=== PATIENT | female | born 1955 | race Asian ===

== ENCOUNTER → 2020-10-23 | Outpatient (CLI) | payer MEDICARE | END | disposition home or self-care (01) | LOC: RADMN 09:27 | PROVIDERS: ATTEND Internal Medicine | DX: M43.16 Spondylolisthesis, lumbar region (principal); M47.816 Spondylosis without myelopathy or radiculopathy, lumbar region; M48.061 Spinal stenosis, lumbar region without neurogenic claudication; M47.817 Spondylosis without myelopathy or radiculopathy, lumbosacral region; M48.07 Spinal stenosis, lumbosacral region; M41.86 Other forms of scoliosis, lumbar region | CPT/HCPCS: 72148 ==

== ENCOUNTER 2020-12-16 16:47 | Inpatient (IN) | payer MEDICARE, BC ==
[~2020-12-16] VITALS: Ht 154.9 cm; Wt 47.6 kg
[2020-12-17 11:30] VITALS: BP 125/71
[2020-12-17] MEDS ORDERED: BISACODYL 10 MG RECTAL RECTAL SUPPOSITORY PR SCH (11:45)
[2020-12-17] MEDS ORDERED: ALBUTEROL SULFATE HFA 90 MCG/PUFF 8 GM INHALER IH PRN (11:45)
[2020-12-17] MEDS ORDERED: INFLUENZA VIRUS VACCINE QVS 2021-22 (6MO+)/PF 60 MCG/0.5 ML SYRINGE IM. ONE (14:45)
[2020-12-17] MEDS ORDERED: PNEUMOCOCCAL VACCINE POLYVALENT 0.5 ML VIAL [PPSV23] IM. ONE (14:45)
[2020-12-17 16:22] VITALS: BP 99/60
[2020-12-17] MEDS: OxyCODONE HCL/ACETAMINOPHEN 10-325 MG TABLET PO PRN (16:22)
[2020-12-17 16:51] VITALS: BP 99/60
[2020-12-17] MEDS: ATORVASTATIN CALCIUM 20 MG TABLET PO SCH (21:18)
[2020-12-17] MEDS: CIPROFLOXACIN HCL 500 MG TABLET PO SCH (21:19)
[2020-12-17] MEDS: SENNA 187 MG TABLET PO SCH (21:19)
[2020-12-17] MEDS: DOCUSATE SODIUM 100 MG CAPSULE PO SCH (21:19)
[2020-12-17] MEDS: ETHYL ALCOHOL 62% ANTISEPTIC NASAL INHALANT 0.6 ML AMPUL NASAL SCH (21:20)
[2020-12-18 02:00] VITALS: BP 103/61
[2020-12-18] MEDS: OxyCODONE HCL/ACETAMINOPHEN 10-325 MG TABLET PO PRN ×3 (03:44→20:18)
[2020-12-18] MEDS: BISACODYL 10 MG RECTAL RECTAL SUPPOSITORY PR SCH (05:27)
[2020-12-18 06:31] LABS: BASOPHILS % (AUTO) 0.9 % (0.0-2.0); EOSINOPHILS % (AUTO) 2.3 % (1.0-6.0); HEMATOCRIT 29.9 % (36-46); HEMOGLOBIN 10.2 g/dL (12.0-16.0); LYMPHOCYTES # (AUTO) 1.3 K/uL (1.0-4.8); MEAN CORPUSCULAR HGB CONC 33.9 G/dL (31.0-37.0); MEAN CORPUSCULAR VOLUME 95 fL (80-100); MONOCYTES # (AUTO) 0.6 K/uL (0.1-1.0); MONOCYTES % (AUTO) 6.5 % (2.0-9.0); NEUTROPHILS # (AUTO) 7.1 K/uL (1.8-7.7); NEUTROPHILS % (AUTO) 76.3 % (40.0-70.0); PLATELET COUNT (AUTO) 328 K/uL (150-450); RED BLOOD CELL COUNT(AUTO) 3.17 MIL/uL (4.00-5.20)
[2020-12-18 06:48] LABS: ALANINE AMINOTRANSFERASE 22 U/L (12-78); ALBUMIN 2.4 g/dL (3.4-5.0); ALKALINE PHOSPHATASE 145 U/L (46-116); ANION GAP 5 mmol/L (8-16); ASPARTATE AMINOTRANSFERASE 18 U/L (15-37); BILIRUBIN,TOTAL 0.2 mg/dL (0.1-1.0); CALCIUM, TOTAL 7.7 mg/dL (8.8-10.5); CARBON DIOXIDE 28 mmol/L (22-29); CHLORIDE 102 mmol/L (98-107); CREATININE 0.46 mg/dL (0.60-1.30); GLOMERULAR FILTR. RATE CALC > 60 mL/min (>60); GLUCOSE,RANDOM 109 mg/dL (70-110); POTASSIUM 4.2 mmol/L (3.5-5.1); SODIUM SERUM 135 mmol/L (136-145); UREA NITROGEN, BLOOD 12 mg/dL (7-18)
[2020-12-18 07:30] VITALS: BP 94/52
[2020-12-18] MEDS: LISINOPRIL 10 MG TABLET PO SCH (08:24)
[2020-12-18] MEDS: DOCUSATE SODIUM 100 MG CAPSULE PO SCH ×2 (08:24→20:13)
[2020-12-18] MEDS: ETHYL ALCOHOL 62% ANTISEPTIC NASAL INHALANT 0.6 ML AMPUL NASAL SCH ×2 (08:24→20:12)
[2020-12-18] MEDS: ASCORBIC ACID 500 MG TABLET PO SCH (08:25)
[2020-12-18] MEDS: POLYETHYLENE GLYCOL 3350 17 GM PACKET PO SCH (08:25)
[2020-12-18] MEDS: CIPROFLOXACIN HCL 500 MG TABLET PO SCH ×2 (08:25→20:12)
[2020-12-18] MEDS: ZINC SULFATE 220 MG CAPSULE PO SCH (13:34)
[2020-12-18] MEDS: MULTIVITAMINS WITH MINERALS, THERAPEUTIC TABLET PO SCH (13:34)
[2020-12-18 16:04] VITALS: BP 103/63
[2020-12-18] MEDS: MELATONIN 3 MG TABLET PO PRN (20:13)
[2020-12-18] MEDS: ATORVASTATIN CALCIUM 20 MG TABLET PO SCH (20:13)
[2020-12-18] MEDS: SENNA 187 MG TABLET PO SCH (20:13)
[2020-12-19] MEDS ORDERED: ASPI81TA39 PO (02:53)
[2020-12-19] MEDS ORDERED: ALEN70TA65 PO (02:53)
[2020-12-19] MEDS ORDERED: LISI-893 PO (02:53)
[2020-12-19] MEDS ORDERED: ATOR20TA86 PO (02:53)
[2020-12-19 04:15] VITALS: BP 99/58
[2020-12-19] MEDS: BISACODYL 10 MG RECTAL RECTAL SUPPOSITORY PR SCH (05:47)
[2020-12-19] MEDS: OxyCODONE HCL/ACETAMINOPHEN 5-325 MG TABLET PO PRN (06:05)
[2020-12-19] MEDS: CYCLOBENZAPRINE HCL 10 MG TABLET PO PRN ×2 (07:26→16:38)
[2020-12-19 09:00] VITALS: BP 94/52
[2020-12-19] MEDS: ASCORBIC ACID 500 MG TABLET PO SCH (09:03)
[2020-12-19] MEDS: LISINOPRIL 10 MG TABLET PO SCH (09:03)
[2020-12-19] MEDS: ETHYL ALCOHOL 62% ANTISEPTIC NASAL INHALANT 0.6 ML AMPUL NASAL SCH ×2 (09:03→21:18)
[2020-12-19] MEDS: DOCUSATE SODIUM 100 MG CAPSULE PO SCH ×2 (09:03→21:19)
[2020-12-19] MEDS: CIPROFLOXACIN HCL 500 MG TABLET PO SCH ×2 (09:03→21:18)
[2020-12-19] MEDS: POLYETHYLENE GLYCOL 3350 17 GM PACKET PO SCH (09:03)
[2020-12-19] MEDS ORDERED: ONDANSETRON HCL 4 MG/2 ML VIAL IVP PRN (09:15)
[2020-12-19] MEDS ORDERED: ONDANSETRON HCL 4 MG TABLET PO PRN (10:15)
[2020-12-19 11:20] LABS: APPEARANCE,URINE CLOUDY (CLEAR); BILIRUBIN,URINE NEGATIVE (NEGATIVE); GLUCOSE, URINE (UA) NEGATIVE (NEGATIVE); KETONES,URINE 15 mg/dL (NEGATIVE); LEUKOCYTE ESTERASE ,URINE TRACE (NEGATIVE); NITRATE,URINE NEGATIVE (NEGATIVE); OCCULT BLOOD,URINE LARGE (NEGATIVE); PROTEIN,URINE POS 1+ (NEGATIVE)
[2020-12-19 11:36] LABS: BACTERIA,URINE Moderate /HPF (None Seen); WBC,URINE 0-2 /HPF (0-5)
[2020-12-19 16:05] VITALS: BP 101/61
[2020-12-19] MEDS: ZINC SULFATE 220 MG CAPSULE PO SCH (16:38)
[2020-12-19] MEDS: GABAPENTIN 100 MG CAPSULE PO SCH (16:38)
[2020-12-19] MEDS: MULTIVITAMINS WITH MINERALS, THERAPEUTIC TABLET PO SCH (16:38)
[2020-12-19] MEDS: SUMAtriptan SUCCINATE 25 MG TABLET PO PRN (18:02)
[2020-12-19] MEDS: SENNA 187 MG TABLET PO SCH (21:18)
[2020-12-19] MEDS: FAMOTIDINE 20 MG TABLET PO SCH (21:18)
[2020-12-19] MEDS: ATORVASTATIN CALCIUM 20 MG TABLET PO SCH (21:18)
[2020-12-19] MEDS: LACTOBAC ACID/BULG/BIFID/THERM TABLET PO SCH (21:18)
[2020-12-19] MEDS: MELATONIN 3 MG TABLET PO PRN (21:23)
[2020-12-20] MEDS: GABAPENTIN 100 MG CAPSULE PO SCH ×3 (00:09→15:56)
[2020-12-20 00:20] VITALS: BP 92/54
[2020-12-20] MEDS: BISACODYL 10 MG RECTAL RECTAL SUPPOSITORY PR SCH (05:36)
[2020-12-20] MEDS: CYCLOBENZAPRINE HCL 10 MG TABLET PO PRN (07:15)
[2020-12-20] MEDS: CIPROFLOXACIN HCL 500 MG TABLET PO SCH ×2 (08:41→21:02)
[2020-12-20] MEDS: ETHYL ALCOHOL 62% ANTISEPTIC NASAL INHALANT 0.6 ML AMPUL NASAL SCH ×2 (08:41→21:02)
[2020-12-20] MEDS: ASCORBIC ACID 500 MG TABLET PO SCH (08:42)
[2020-12-20] MEDS: POLYETHYLENE GLYCOL 3350 17 GM PACKET PO SCH (08:42)
[2020-12-20] MEDS: LACTOBAC ACID/BULG/BIFID/THERM TABLET PO SCH ×2 (08:42→21:02)
[2020-12-20] MEDS: FAMOTIDINE 20 MG TABLET PO SCH ×2 (08:42→21:02)
[2020-12-20] MEDS: DOCUSATE SODIUM 100 MG CAPSULE PO SCH ×2 (08:42→21:02)
[2020-12-20 09:34] VITALS: BP 108/71
[2020-12-20] MEDS: SUMAtriptan SUCCINATE 25 MG TABLET PO PRN (09:34)
[2020-12-20] MEDS: MULTIVITAMINS WITH MINERALS, THERAPEUTIC TABLET PO SCH (11:17)
[2020-12-20] MEDS: ZINC SULFATE 220 MG CAPSULE PO SCH (11:17)
[2020-12-20] MEDS: ENOXAPARIN SODIUM 30 MG/0.3 ML PF SYRINGE SQ SCH ×2 (11:17→21:02)
[2020-12-20 16:38] VITALS: BP 95/65
[2020-12-20] MEDS: SENNA 187 MG TABLET PO SCH (21:02)
[2020-12-20] MEDS: ATORVASTATIN CALCIUM 20 MG TABLET PO SCH (21:02)
[2020-12-20] MEDS: MELATONIN 3 MG TABLET PO PRN (21:02)
[2020-12-21] MEDS: GABAPENTIN 100 MG CAPSULE PO SCH ×4 (00:10→23:53)
[2020-12-21 00:30] VITALS: BP 91/58
[2020-12-21] MEDS: OxyCODONE HCL/ACETAMINOPHEN 5-325 MG TABLET PO PRN (01:47)
[2020-12-21] MEDS: BISACODYL 10 MG RECTAL RECTAL SUPPOSITORY PR SCH (06:06)
[2020-12-21] MEDS: CYCLOBENZAPRINE HCL 10 MG TABLET PO PRN (08:21)
[2020-12-21] MEDS: LACTOBAC ACID/BULG/BIFID/THERM TABLET PO SCH ×2 (08:22→20:52)
[2020-12-21] MEDS: CIPROFLOXACIN HCL 500 MG TABLET PO SCH ×2 (08:22→20:52)
[2020-12-21] MEDS: FAMOTIDINE 20 MG TABLET PO SCH ×2 (08:22→20:52)
[2020-12-21] MEDS: ASCORBIC ACID 500 MG TABLET PO SCH (08:22)
[2020-12-21] MEDS: ETHYL ALCOHOL 62% ANTISEPTIC NASAL INHALANT 0.6 ML AMPUL NASAL SCH ×2 (08:22→20:52)
[2020-12-21] MEDS: DOCUSATE SODIUM 100 MG CAPSULE PO SCH ×2 (08:22→20:52)
[2020-12-21] MEDS: ENOXAPARIN SODIUM 30 MG/0.3 ML PF SYRINGE SQ SCH ×2 (08:23→20:53)
[2020-12-21] MEDS: POLYETHYLENE GLYCOL 3350 17 GM PACKET PO SCH (08:23)
[2020-12-21 10:36] VITALS: BP 108/61
[2020-12-21] MEDS: MULTIVITAMINS WITH MINERALS, THERAPEUTIC TABLET PO SCH (12:04)
[2020-12-21] MEDS: ZINC SULFATE 220 MG CAPSULE PO SCH (12:04)
[2020-12-21 15:57] VITALS: BP 108/63
[2020-12-21] MEDS: ATORVASTATIN CALCIUM 20 MG TABLET PO SCH (20:51)
[2020-12-21] MEDS: MELATONIN 3 MG TABLET PO PRN (20:52)
[2020-12-21] MEDS: SENNA 187 MG TABLET PO SCH (20:52)
[2020-12-21 23:57] VITALS: BP 102/63
[2020-12-22] MEDS: OxyCODONE HCL/ACETAMINOPHEN 10-325 MG TABLET PO PRN (02:29)
[2020-12-22] MEDS: BISACODYL 10 MG RECTAL RECTAL SUPPOSITORY PR SCH (06:33)
[2020-12-22] MEDS: FAMOTIDINE 20 MG TABLET PO SCH ×2 (09:22→20:31)
[2020-12-22] MEDS: DOCUSATE SODIUM 100 MG CAPSULE PO SCH ×2 (09:22→20:31)
[2020-12-22] MEDS: CIPROFLOXACIN HCL 500 MG TABLET PO SCH ×2 (09:22→20:31)
[2020-12-22] MEDS: ENOXAPARIN SODIUM 30 MG/0.3 ML PF SYRINGE SQ SCH ×2 (09:22→20:30)
[2020-12-22] MEDS: ETHYL ALCOHOL 62% ANTISEPTIC NASAL INHALANT 0.6 ML AMPUL NASAL SCH ×2 (09:22→20:31)
[2020-12-22] MEDS: ASCORBIC ACID 500 MG TABLET PO SCH (09:22)
[2020-12-22] MEDS: POLYETHYLENE GLYCOL 3350 17 GM PACKET PO SCH (09:22)
[2020-12-22] MEDS: LACTOBAC ACID/BULG/BIFID/THERM TABLET PO SCH ×2 (09:22→20:31)
[2020-12-22] MEDS: GABAPENTIN 100 MG CAPSULE PO SCH ×3 (09:23→23:36)
[2020-12-22 10:01] VITALS: BP 98/64
[2020-12-22] MEDS: ZINC SULFATE 220 MG CAPSULE PO SCH (12:15)
[2020-12-22] MEDS: MULTIVITAMINS WITH MINERALS, THERAPEUTIC TABLET PO SCH (12:15)
[2020-12-22 16:03] VITALS: BP 99/68
[2020-12-22] MEDS: SENNA 187 MG TABLET PO SCH (20:30)
[2020-12-22] MEDS: MELATONIN 3 MG TABLET PO PRN (20:31)
[2020-12-22] MEDS: ATORVASTATIN CALCIUM 20 MG TABLET PO SCH (20:31)
[2020-12-22 23:32] VITALS: BP 101/66
[2020-12-23] MEDS: GABAPENTIN 100 MG CAPSULE PO SCH ×3 (08:06→22:13)
[2020-12-23] MEDS: DOCUSATE SODIUM 100 MG CAPSULE PO SCH ×3 (08:07→22:12)
[2020-12-23] MEDS: ETHYL ALCOHOL 62% ANTISEPTIC NASAL INHALANT 0.6 ML AMPUL NASAL SCH ×2 (08:07→22:12)
[2020-12-23] MEDS: ENOXAPARIN SODIUM 30 MG/0.3 ML PF SYRINGE SQ SCH ×2 (08:07→22:13)
[2020-12-23] MEDS: FAMOTIDINE 20 MG TABLET PO SCH ×2 (08:08→22:13)
[2020-12-23] MEDS: BISACODYL 10 MG RECTAL RECTAL SUPPOSITORY PR SCH (08:08)
[2020-12-23] MEDS: LACTOBAC ACID/BULG/BIFID/THERM TABLET PO SCH ×2 (08:08→22:12)
[2020-12-23] MEDS: POLYETHYLENE GLYCOL 3350 17 GM PACKET PO SCH (08:08)
[2020-12-23] MEDS: CIPROFLOXACIN HCL 500 MG TABLET PO SCH ×2 (08:08→22:12)
[2020-12-23] MEDS: ASCORBIC ACID 500 MG TABLET PO SCH (08:09)
[2020-12-23 08:58] VITALS: BP 98/60
[2020-12-23] MEDS: CYCLOBENZAPRINE HCL 10 MG TABLET PO PRN ×2 (10:50→22:41)
[2020-12-23] MEDS: ZINC SULFATE 220 MG CAPSULE PO SCH (12:54)
[2020-12-23] MEDS: MULTIVITAMINS WITH MINERALS, THERAPEUTIC TABLET PO SCH (12:54)
[2020-12-23 15:57] VITALS: BP 103/63
[2020-12-23] MEDS: SENNA 187 MG TABLET PO SCH ×2 (21:00→22:12)
[2020-12-23] MEDS: ATORVASTATIN CALCIUM 20 MG TABLET PO SCH (22:14)
[2020-12-23] MEDS: MELATONIN 3 MG TABLET PO PRN (22:21)
[2020-12-24] VITALS: BP 96/55
[2020-12-24] MEDS: OxyCODONE HCL/ACETAMINOPHEN 5-325 MG TABLET PO PRN (03:25)
[2020-12-24] MEDS: BISACODYL 10 MG RECTAL RECTAL SUPPOSITORY PR SCH (08:14)
[2020-12-24] MEDS: ETHYL ALCOHOL 62% ANTISEPTIC NASAL INHALANT 0.6 ML AMPUL NASAL SCH ×2 (08:14→21:38)
[2020-12-24] MEDS: CIPROFLOXACIN HCL 500 MG TABLET PO SCH ×2 (08:14→21:38)
[2020-12-24] MEDS: LACTOBAC ACID/BULG/BIFID/THERM TABLET PO SCH ×2 (08:14→21:38)
[2020-12-24] MEDS: GABAPENTIN 100 MG CAPSULE PO SCH ×3 (08:14→21:38)
[2020-12-24] MEDS: DOCUSATE SODIUM 100 MG CAPSULE PO SCH ×2 (08:15→21:38)
[2020-12-24] MEDS: FAMOTIDINE 20 MG TABLET PO SCH ×2 (08:15→21:38)
[2020-12-24] MEDS: POLYETHYLENE GLYCOL 3350 17 GM PACKET PO SCH (08:15)
[2020-12-24] MEDS: ENOXAPARIN SODIUM 30 MG/0.3 ML PF SYRINGE SQ SCH ×2 (08:15→21:38)
[2020-12-24] MEDS: ASCORBIC ACID 500 MG TABLET PO SCH (08:15)
[2020-12-24 08:33] LABS: BASOPHILS % (AUTO) 1.8 % (0.0-2.0); EOSINOPHILS % (AUTO) 3.8 % (1.0-6.0); HEMATOCRIT 31.5 % (36-46); HEMOGLOBIN 10.5 g/dL (12.0-16.0); LYMPHOCYTES # (AUTO) 1.8 K/uL (1.0-4.8); LYMPHOCYTES % (AUTO) 30.8 % (22.0-44.0); MEAN CORPUSCULAR HEMOGLOBIN 31.6 pg (26.0-34.0); MEAN CORPUSCULAR HGB CONC 33.4 G/dL (31.0-37.0); MEAN CORPUSCULAR VOLUME 95 fL (80-100); MONOCYTES # (AUTO) 0.4 K/uL (0.1-1.0); MONOCYTES % (AUTO) 6.7 % (2.0-9.0); NEUTROPHILS # (AUTO) 3.3 K/uL (1.8-7.7); NEUTROPHILS % (AUTO) 56.9 % (40.0-70.0); PLATELET COUNT (AUTO) 388 K/uL (150-450); RED BLOOD CELL COUNT(AUTO) 3.33 MIL/uL (4.00-5.20); RED CELL DISTRIBUTION WIDTH 13.1 % (11.5-14.5)
[2020-12-24 08:43] LABS: ANION GAP 2 mmol/L (8-16); CALCIUM, TOTAL 8.6 mg/dL (8.8-10.5); CARBON DIOXIDE 31 mmol/L (22-29); CHLORIDE 107 mmol/L (98-107); CREATININE 0.49 mg/dL (0.60-1.30); GLOMERULAR FILTR. RATE CALC > 60 mL/min (>60); GLUCOSE,RANDOM 93 mg/dL (70-110); POTASSIUM 4.5 mmol/L (3.5-5.1); SODIUM SERUM 140 mmol/L (136-145); UREA NITROGEN, BLOOD 11 mg/dL (7-18)
[2020-12-24 09:51] VITALS: BP 106/73
[2020-12-24] MEDS: ZINC SULFATE 220 MG CAPSULE PO SCH (12:36)
[2020-12-24] MEDS: MULTIVITAMINS WITH MINERALS, THERAPEUTIC TABLET PO SCH (12:36)
[2020-12-24 16:52] VITALS: BP 101/67
[2020-12-24] MEDS: MELATONIN 3 MG TABLET PO PRN (21:38)
[2020-12-24] MEDS: SENNA 187 MG TABLET PO SCH (21:38)
[2020-12-24] MEDS: ATORVASTATIN CALCIUM 20 MG TABLET PO SCH (21:43)
[2020-12-24 23:11] VITALS: BP 100/64
[2020-12-24] MEDS: CYCLOBENZAPRINE HCL 10 MG TABLET PO PRN (23:11)
[2020-12-25] MEDS: OxyCODONE HCL/ACETAMINOPHEN 5-325 MG TABLET PO PRN ×3 (00:58→23:37)
[2020-12-25 08:00] VITALS: BP 110/69
[2020-12-25] MEDS: DOCUSATE SODIUM 100 MG CAPSULE PO SCH ×2 (08:21→20:20)
[2020-12-25] MEDS: LACTOBAC ACID/BULG/BIFID/THERM TABLET PO SCH ×2 (08:22→20:20)
[2020-12-25] MEDS: POLYETHYLENE GLYCOL 3350 17 GM PACKET PO SCH (08:22)
[2020-12-25] MEDS: GABAPENTIN 100 MG CAPSULE PO SCH ×3 (08:22→20:21)
[2020-12-25] MEDS: ENOXAPARIN SODIUM 30 MG/0.3 ML PF SYRINGE SQ SCH ×2 (08:22→20:20)
[2020-12-25] MEDS: CIPROFLOXACIN HCL 500 MG TABLET PO SCH (08:22)
[2020-12-25] MEDS: CYCLOBENZAPRINE HCL 10 MG TABLET PO PRN (08:22)
[2020-12-25] MEDS: FAMOTIDINE 20 MG TABLET PO SCH ×2 (08:22→20:20)
[2020-12-25] MEDS: ETHYL ALCOHOL 62% ANTISEPTIC NASAL INHALANT 0.6 ML AMPUL NASAL SCH ×2 (08:23→20:21)
[2020-12-25] MEDS: BISACODYL 10 MG RECTAL RECTAL SUPPOSITORY PR SCH (12:02)
[2020-12-25] MEDS: ASCORBIC ACID 500 MG TABLET PO SCH (12:26)
[2020-12-25] MEDS: MULTIVITAMINS WITH MINERALS, THERAPEUTIC TABLET PO SCH (12:26)
[2020-12-25] MEDS: ZINC SULFATE 220 MG CAPSULE PO SCH (12:26)
[2020-12-25 15:55] VITALS: BP 97/68
[2020-12-25] MEDS: ATORVASTATIN CALCIUM 20 MG TABLET PO SCH (20:20)
[2020-12-25] MEDS: MELATONIN 3 MG TABLET PO PRN (20:20)
[2020-12-25] MEDS: SENNA 187 MG TABLET PO SCH (20:20)
[2020-12-25 23:37] VITALS: BP 110/70
[2020-12-26] MEDS: CYCLOBENZAPRINE HCL 10 MG TABLET PO PRN ×2 (06:33→20:19)
[2020-12-26] MEDS: BISACODYL 10 MG RECTAL RECTAL SUPPOSITORY PR SCH (07:25)
[2020-12-26] MEDS: POLYETHYLENE GLYCOL 3350 17 GM PACKET PO SCH (08:20)
[2020-12-26] MEDS: ETHYL ALCOHOL 62% ANTISEPTIC NASAL INHALANT 0.6 ML AMPUL NASAL SCH ×2 (08:20→20:17)
[2020-12-26] MEDS: ENOXAPARIN SODIUM 30 MG/0.3 ML PF SYRINGE SQ SCH ×2 (08:21→20:16)
[2020-12-26] MEDS: DOCUSATE SODIUM 100 MG CAPSULE PO SCH ×2 (08:21→20:17)
[2020-12-26] MEDS: ASCORBIC ACID 500 MG TABLET PO SCH (08:21)
[2020-12-26] MEDS: LACTOBAC ACID/BULG/BIFID/THERM TABLET PO SCH ×2 (08:21→20:16)
[2020-12-26] MEDS: FAMOTIDINE 20 MG TABLET PO SCH ×2 (08:21→20:17)
[2020-12-26] MEDS: GABAPENTIN 100 MG CAPSULE PO SCH ×3 (08:22→20:17)
[2020-12-26 08:57] VITALS: BP 96/69
[2020-12-26] MEDS: ZINC SULFATE 220 MG CAPSULE PO SCH (12:37)
[2020-12-26] MEDS: MULTIVITAMINS WITH MINERALS, THERAPEUTIC TABLET PO SCH (12:37)
[2020-12-26 17:04] VITALS: BP 104/72
[2020-12-26] MEDS: ATORVASTATIN CALCIUM 20 MG TABLET PO SCH (20:17)
[2020-12-26] MEDS: SENNA 187 MG TABLET PO SCH (20:17)
[2020-12-26] MEDS: MELATONIN 3 MG TABLET PO PRN (20:17)
[2020-12-26 23:33] VITALS: BP 109/87
[2020-12-27] MEDS: ACETAMINOPHEN 325 MG TABLET PO PRN (00:49)
[2020-12-27 07:20] VITALS: BP 103/68
[2020-12-27] MEDS: CYCLOBENZAPRINE HCL 10 MG TABLET PO PRN ×2 (08:31→16:47)
[2020-12-27] MEDS: ETHYL ALCOHOL 62% ANTISEPTIC NASAL INHALANT 0.6 ML AMPUL NASAL SCH ×2 (08:33→20:26)
[2020-12-27] MEDS: LACTOBAC ACID/BULG/BIFID/THERM TABLET PO SCH ×2 (08:33→20:25)
[2020-12-27] MEDS: BISACODYL 10 MG RECTAL RECTAL SUPPOSITORY PR SCH (08:33)
[2020-12-27] MEDS: FAMOTIDINE 20 MG TABLET PO SCH ×2 (08:33→20:25)
[2020-12-27] MEDS: ENOXAPARIN SODIUM 30 MG/0.3 ML PF SYRINGE SQ SCH ×2 (08:34→20:25)
[2020-12-27] MEDS: DOCUSATE SODIUM 100 MG CAPSULE PO SCH ×2 (08:34→20:25)
[2020-12-27] MEDS: ASCORBIC ACID 500 MG TABLET PO SCH (08:34)
[2020-12-27] MEDS: GABAPENTIN 100 MG CAPSULE PO SCH (08:34)
[2020-12-27] MEDS: POLYETHYLENE GLYCOL 3350 17 GM PACKET PO SCH (08:34)
[2020-12-27] MEDS: MULTIVITAMINS WITH MINERALS, THERAPEUTIC TABLET PO SCH (11:15)
[2020-12-27] MEDS: ZINC SULFATE 220 MG CAPSULE PO SCH (11:15)
[2020-12-27 16:00] VITALS: BP 92/57
[2020-12-27] MEDS: GABAPENTIN 300 MG CAPSULE PO SCH ×2 (16:48→20:25)
[2020-12-27 20:24] VITALS: BP 113/66
[2020-12-27] MEDS: OxyCODONE HCL/ACETAMINOPHEN 5-325 MG TABLET PO PRN (20:24)
[2020-12-27] MEDS: ATORVASTATIN CALCIUM 20 MG TABLET PO SCH (20:25)
[2020-12-27] MEDS: SENNA 187 MG TABLET PO SCH (20:25)
[2020-12-28 05:33] VITALS: BP 119/78
[2020-12-28] MEDS: OxyCODONE HCL/ACETAMINOPHEN 5-325 MG TABLET PO PRN (05:33)
[2020-12-28] MEDS: GABAPENTIN 300 MG CAPSULE PO SCH ×3 (08:19→20:45)
[2020-12-28] MEDS: DOCUSATE SODIUM 100 MG CAPSULE PO SCH ×2 (08:19→20:45)
[2020-12-28] MEDS: FAMOTIDINE 20 MG TABLET PO SCH ×2 (08:20→20:44)
[2020-12-28] MEDS: LACTOBAC ACID/BULG/BIFID/THERM TABLET PO SCH ×2 (08:20→20:45)
[2020-12-28] MEDS: BISACODYL 10 MG RECTAL RECTAL SUPPOSITORY PR SCH ×2 (08:20→08:22)
[2020-12-28] MEDS: ENOXAPARIN SODIUM 30 MG/0.3 ML PF SYRINGE SQ SCH ×2 (08:20→20:44)
[2020-12-28] MEDS: ASCORBIC ACID 500 MG TABLET PO SCH (08:20)
[2020-12-28] MEDS: POLYETHYLENE GLYCOL 3350 17 GM PACKET PO SCH (08:20)
[2020-12-28] MEDS: ETHYL ALCOHOL 62% ANTISEPTIC NASAL INHALANT 0.6 ML AMPUL NASAL SCH ×2 (08:21→20:44)
[2020-12-28 11:00] VITALS: BP 113/83
[2020-12-28] MEDS: MULTIVITAMINS WITH MINERALS, THERAPEUTIC TABLET PO SCH (12:35)
[2020-12-28] MEDS: ZINC SULFATE 220 MG CAPSULE PO SCH (12:35)
[2020-12-28 15:48] VITALS: BP 105/66
[2020-12-28] MEDS: CYCLOBENZAPRINE HCL 10 MG TABLET PO PRN (17:33)
[2020-12-28] MEDS: ATORVASTATIN CALCIUM 20 MG TABLET PO SCH (20:45)
[2020-12-28] MEDS: SENNA 187 MG TABLET PO SCH (20:45)
[2020-12-29 00:22] VITALS: BP 118/72
[2020-12-29] MEDS: OxyCODONE HCL/ACETAMINOPHEN 5-325 MG TABLET PO PRN ×2 (00:22→23:07)
[2020-12-29] MEDS: ACETAMINOPHEN 325 MG TABLET PO PRN (02:13)
[2020-12-29] MEDS: CYCLOBENZAPRINE HCL 10 MG TABLET PO PRN (06:29)
[2020-12-29] MEDS: ETHYL ALCOHOL 62% ANTISEPTIC NASAL INHALANT 0.6 ML AMPUL NASAL SCH ×2 (08:21→20:35)
[2020-12-29] MEDS: POLYETHYLENE GLYCOL 3350 17 GM PACKET PO SCH (08:21)
[2020-12-29] MEDS: ENOXAPARIN SODIUM 30 MG/0.3 ML PF SYRINGE SQ SCH ×2 (08:21→20:35)
[2020-12-29] MEDS: LACTOBAC ACID/BULG/BIFID/THERM TABLET PO SCH ×2 (08:21→20:36)
[2020-12-29] MEDS: DOCUSATE SODIUM 100 MG CAPSULE PO SCH ×2 (08:21→20:37)
[2020-12-29] MEDS: ASCORBIC ACID 500 MG TABLET PO SCH (08:22)
[2020-12-29] MEDS: GABAPENTIN 300 MG CAPSULE PO SCH (08:22)
[2020-12-29] MEDS: FAMOTIDINE 20 MG TABLET PO SCH ×2 (08:22→20:36)
[2020-12-29] MEDS ORDERED: GABAPENTIN 100 MG CAPSULE PO ONE (09:00)
[2020-12-29] MEDS ORDERED: GABAPENTIN 400 MG CAPSULE PO SCH (09:00)
[2020-12-29 09:25] VITALS: BP 108/66
[2020-12-29] MEDS: TAMSULOSIN HCL 0.4 MG CAPSULE PO SCH ×2 (10:45→20:36)
[2020-12-29] MEDS: MULTIVITAMINS WITH MINERALS, THERAPEUTIC TABLET PO SCH (12:02)
[2020-12-29] MEDS: ZINC SULFATE 220 MG CAPSULE PO SCH (12:02)
[2020-12-29 15:02] VITALS: BP 102/65
[2020-12-29] MEDS: GABAPENTIN 400 MG CAPSULE PO SCH ×2 (15:19→20:36)
[2020-12-29] MEDS: SENNA 187 MG TABLET PO SCH (20:36)
[2020-12-29] MEDS: ATORVASTATIN CALCIUM 20 MG TABLET PO SCH (20:36)
[2020-12-29 23:07] VITALS: BP 112/69
[2020-12-29] MEDS: MELATONIN 3 MG TABLET PO PRN (23:11)
[2020-12-30] MEDS: ACETAMINOPHEN 325 MG TABLET PO PRN (04:34)
[2020-12-30] MEDS: LACTOBAC ACID/BULG/BIFID/THERM TABLET PO SCH ×2 (07:58→21:18)
[2020-12-30] MEDS: ETHYL ALCOHOL 62% ANTISEPTIC NASAL INHALANT 0.6 ML AMPUL NASAL SCH ×2 (07:58→21:18)
[2020-12-30] MEDS: BISACODYL 10 MG RECTAL RECTAL SUPPOSITORY PR SCH (07:58)
[2020-12-30] MEDS: DOCUSATE SODIUM 100 MG CAPSULE PO SCH ×2 (07:59→21:18)
[2020-12-30] MEDS: POLYETHYLENE GLYCOL 3350 17 GM PACKET PO SCH (08:00)
[2020-12-30] MEDS: TAMSULOSIN HCL 0.4 MG CAPSULE PO SCH (08:00)
[2020-12-30] MEDS: ASCORBIC ACID 500 MG TABLET PO SCH (08:01)
[2020-12-30] MEDS: ENOXAPARIN SODIUM 30 MG/0.3 ML PF SYRINGE SQ SCH ×2 (08:01→21:18)
[2020-12-30] MEDS: FAMOTIDINE 20 MG TABLET PO SCH ×2 (08:01→21:18)
[2020-12-30] MEDS: GABAPENTIN 400 MG CAPSULE PO SCH ×3 (08:01→21:18)
[2020-12-30 09:13] VITALS: BP 112/75
[2020-12-30] MEDS: MULTIVITAMINS WITH MINERALS, THERAPEUTIC TABLET PO SCH (13:48)
[2020-12-30] MEDS: ZINC SULFATE 220 MG CAPSULE PO SCH (13:48)
[2020-12-30 16:00] VITALS: BP 103/66
[2020-12-30] MEDS: OxyCODONE HCL/ACETAMINOPHEN 5-325 MG TABLET PO PRN (17:40)
[2020-12-30] MEDS: ATORVASTATIN CALCIUM 20 MG TABLET PO SCH (21:18)
[2020-12-30] MEDS: MELATONIN 3 MG TABLET PO PRN (21:18)
[2020-12-30 23:59] VITALS: BP 98/64
[2020-12-31] MEDS: OxyCODONE HCL/ACETAMINOPHEN 5-325 MG TABLET PO PRN
[2020-12-31] MEDS ORDERED: ZINC220C14 PO (02:28)
[2020-12-31] MEDS ORDERED: FAMO20 PO (02:28)
[2020-12-31] MEDS ORDERED: ASCO500 PO (02:28)
[2020-12-31] MEDS ORDERED: GABA-1216 PO (02:28)
[2020-12-31] MEDS ORDERED: MULT-1133 PO (02:28)
[2020-12-31] MEDS: DOCUSATE SODIUM 100 MG CAPSULE PO SCH ×2 (07:56→20:28)
[2020-12-31] MEDS: ETHYL ALCOHOL 62% ANTISEPTIC NASAL INHALANT 0.6 ML AMPUL NASAL SCH ×2 (07:56→20:29)
[2020-12-31] MEDS: LACTOBAC ACID/BULG/BIFID/THERM TABLET PO SCH ×2 (07:56→20:29)
[2020-12-31] MEDS: FAMOTIDINE 20 MG TABLET PO SCH ×2 (07:57→20:29)
[2020-12-31] MEDS: POLYETHYLENE GLYCOL 3350 17 GM PACKET PO SCH (07:57)
[2020-12-31] MEDS: ASCORBIC ACID 500 MG TABLET PO SCH (07:57)
[2020-12-31] MEDS: ENOXAPARIN SODIUM 30 MG/0.3 ML PF SYRINGE SQ SCH ×2 (07:57→20:28)
[2020-12-31] MEDS: GABAPENTIN 400 MG CAPSULE PO SCH ×3 (07:57→20:28)
[2020-12-31] MEDS: CYCLOBENZAPRINE HCL 10 MG TABLET PO PRN (08:15)
[2020-12-31 09:18] VITALS: BP 121/72
[2020-12-31] MEDS: ZINC SULFATE 220 MG CAPSULE PO SCH (12:29)
[2020-12-31] MEDS: MULTIVITAMINS WITH MINERALS, THERAPEUTIC TABLET PO SCH (12:29)
[2020-12-31] MEDS: ACETAMINOPHEN 325 MG TABLET PO PRN (13:45)
[2020-12-31 17:05] VITALS: BP 109/62
[2020-12-31] MEDS: DULoxetine HCL 20 MG CAPSULE PO SCH (20:29)
[2020-12-31] MEDS: ATORVASTATIN CALCIUM 20 MG TABLET PO SCH (20:29)
[2021-01-01 02:30] VITALS: BP 140/78
[2021-01-01] MEDS: CYCLOBENZAPRINE HCL 10 MG TABLET PO PRN (02:30)
[2021-01-01] MEDS: OxyCODONE HCL/ACETAMINOPHEN 5-325 MG TABLET PO PRN ×2 (05:23→16:16)
[2021-01-01 07:25] VITALS: BP 150/78
[2021-01-01] MEDS: BISACODYL 10 MG RECTAL RECTAL SUPPOSITORY PR SCH (08:24)
[2021-01-01] MEDS: FAMOTIDINE 20 MG TABLET PO SCH ×2 (08:39→21:32)
[2021-01-01] MEDS: DOCUSATE SODIUM 100 MG CAPSULE PO SCH ×2 (08:39→21:32)
[2021-01-01] MEDS: ETHYL ALCOHOL 62% ANTISEPTIC NASAL INHALANT 0.6 ML AMPUL NASAL SCH ×2 (08:39→21:32)
[2021-01-01] MEDS: ASCORBIC ACID 500 MG TABLET PO SCH (08:39)
[2021-01-01] MEDS: POLYETHYLENE GLYCOL 3350 17 GM PACKET PO SCH (08:39)
[2021-01-01] MEDS: LACTOBAC ACID/BULG/BIFID/THERM TABLET PO SCH ×2 (08:39→21:32)
[2021-01-01] MEDS: ENOXAPARIN SODIUM 30 MG/0.3 ML PF SYRINGE SQ SCH ×2 (08:40→21:32)
[2021-01-01] MEDS: GABAPENTIN 400 MG CAPSULE PO SCH ×3 (08:50→21:32)
[2021-01-01 09:30] VITALS: BP 105/60
[2021-01-01] MEDS: MULTIVITAMINS WITH MINERALS, THERAPEUTIC TABLET PO SCH (12:58)
[2021-01-01] MEDS: ZINC SULFATE 220 MG CAPSULE PO SCH (12:58)
[2021-01-01 16:00] VITALS: BP 130/78
[2021-01-01] MEDS: DULoxetine HCL 20 MG CAPSULE PO SCH (21:32)
[2021-01-01] MEDS: ATORVASTATIN CALCIUM 20 MG TABLET PO SCH (21:32)
[2021-01-01] MEDS: MELATONIN 3 MG TABLET PO PRN (21:40)
[2021-01-02 02:30] VITALS: BP 130/80
[2021-01-02 08:20] VITALS: BP 134/83
[2021-01-02] MEDS: POLYETHYLENE GLYCOL 3350 17 GM PACKET PO SCH (08:23)
[2021-01-02] MEDS: ACETAMINOPHEN 325 MG TABLET PO PRN (08:23)
[2021-01-02] MEDS: DOCUSATE SODIUM 100 MG CAPSULE PO SCH ×2 (08:23→21:41)
[2021-01-02] MEDS: ETHYL ALCOHOL 62% ANTISEPTIC NASAL INHALANT 0.6 ML AMPUL NASAL SCH ×2 (08:23→21:41)
[2021-01-02] MEDS: LACTOBAC ACID/BULG/BIFID/THERM TABLET PO SCH ×2 (08:24→21:41)
[2021-01-02] MEDS: FAMOTIDINE 20 MG TABLET PO SCH ×2 (08:24→21:41)
[2021-01-02] MEDS: GABAPENTIN 400 MG CAPSULE PO SCH ×3 (08:24→21:41)
[2021-01-02] MEDS: ASCORBIC ACID 500 MG TABLET PO SCH (08:24)
[2021-01-02] MEDS: ENOXAPARIN SODIUM 30 MG/0.3 ML PF SYRINGE SQ SCH ×2 (08:24→21:41)
[2021-01-02] MEDS: MULTIVITAMINS WITH MINERALS, THERAPEUTIC TABLET PO SCH (12:29)
[2021-01-02] MEDS: ZINC SULFATE 220 MG CAPSULE PO SCH (12:29)
[2021-01-02 16:00] VITALS: BP 133/83
[2021-01-02] MEDS: MELATONIN 3 MG TABLET PO PRN (21:41)
[2021-01-02] MEDS: ATORVASTATIN CALCIUM 20 MG TABLET PO SCH (21:41)
[2021-01-02] MEDS: DULoxetine HCL 20 MG CAPSULE PO SCH (21:41)
[2021-01-02 23:39] VITALS: BP 122/80
[2021-01-02] MEDS: OxyCODONE HCL/ACETAMINOPHEN 5-325 MG TABLET PO PRN (23:39)
[2021-01-03] MEDS: BISACODYL 10 MG RECTAL RECTAL SUPPOSITORY PR SCH (07:16)
[2021-01-03 08:40] VITALS: BP 130/79
[2021-01-03] MEDS: ACETAMINOPHEN 325 MG TABLET PO PRN ×2 (08:40→14:07)
[2021-01-03] MEDS: ASCORBIC ACID 500 MG TABLET PO SCH (08:40)
[2021-01-03] MEDS: ETHYL ALCOHOL 62% ANTISEPTIC NASAL INHALANT 0.6 ML AMPUL NASAL SCH ×2 (08:40→20:16)
[2021-01-03] MEDS: LACTOBAC ACID/BULG/BIFID/THERM TABLET PO SCH ×2 (08:41→20:16)
[2021-01-03] MEDS: GABAPENTIN 300 MG CAPSULE PO SCH ×3 (08:41→20:17)
[2021-01-03] MEDS: FAMOTIDINE 20 MG TABLET PO SCH ×2 (08:41→20:17)
[2021-01-03] MEDS: ENOXAPARIN SODIUM 30 MG/0.3 ML PF SYRINGE SQ SCH ×2 (08:41→20:15)
[2021-01-03] MEDS: DOCUSATE SODIUM 100 MG CAPSULE PO SCH ×2 (08:42→20:17)
[2021-01-03] MEDS: POLYETHYLENE GLYCOL 3350 17 GM PACKET PO SCH (08:42)
[2021-01-03] MEDS: ZINC SULFATE 220 MG CAPSULE PO SCH (12:26)
[2021-01-03] MEDS: MULTIVITAMINS WITH MINERALS, THERAPEUTIC TABLET PO SCH (12:26)
[2021-01-03 16:30] VITALS: BP 111/67
[2021-01-03] MEDS: BACLOFEN 10 MG TABLET PO SCH ×2 (16:44→20:21)
[2021-01-03] MEDS: DULoxetine HCL 20 MG CAPSULE PO SCH (20:16)
[2021-01-03] MEDS: ATORVASTATIN CALCIUM 20 MG TABLET PO SCH (20:17)
[2021-01-03 23:51] VITALS: BP 148/77
[2021-01-03] MEDS: OxyCODONE HCL/ACETAMINOPHEN 5-325 MG TABLET PO PRN (23:51)
[2021-01-04] MEDS: POLYETHYLENE GLYCOL 3350 17 GM PACKET PO SCH (09:00)
[2021-01-04] MEDS: DOCUSATE SODIUM 100 MG CAPSULE PO SCH ×2 (09:00→20:16)
[2021-01-04 09:15] VITALS: BP 127/85
[2021-01-04] MEDS: ETHYL ALCOHOL 62% ANTISEPTIC NASAL INHALANT 0.6 ML AMPUL NASAL SCH ×2 (09:23→20:13)
[2021-01-04] MEDS: ENOXAPARIN SODIUM 30 MG/0.3 ML PF SYRINGE SQ SCH ×2 (09:24→20:14)
[2021-01-04] MEDS: GABAPENTIN 300 MG CAPSULE PO SCH ×3 (09:25→20:14)
[2021-01-04] MEDS: ASCORBIC ACID 500 MG TABLET PO SCH (09:26)
[2021-01-04] MEDS: BACLOFEN 10 MG TABLET PO SCH ×3 (09:26→20:14)
[2021-01-04] MEDS: LACTOBAC ACID/BULG/BIFID/THERM TABLET PO SCH ×2 (09:26→20:16)
[2021-01-04] MEDS: FAMOTIDINE 20 MG TABLET PO SCH ×2 (09:26→20:14)
[2021-01-04] MEDS: ACETAMINOPHEN 325 MG TABLET PO PRN (10:32)
[2021-01-04] MEDS: ZINC SULFATE 220 MG CAPSULE PO SCH (12:48)
[2021-01-04] MEDS: MULTIVITAMINS WITH MINERALS, THERAPEUTIC TABLET PO SCH (12:48)
[2021-01-04 16:02] VITALS: BP 114/64
[2021-01-04] MEDS: MELATONIN 3 MG TABLET PO PRN (20:14)
[2021-01-04] MEDS: ATORVASTATIN CALCIUM 20 MG TABLET PO SCH (20:14)
[2021-01-04] MEDS: DULoxetine HCL 20 MG CAPSULE PO SCH (20:16)
[2021-01-05 05:46] VITALS: BP 131/78
[2021-01-05] MEDS: BISACODYL 10 MG RECTAL RECTAL SUPPOSITORY PR SCH (07:32)
[2021-01-05] MEDS: POLYETHYLENE GLYCOL 3350 17 GM PACKET PO SCH (09:00)
[2021-01-05 09:10] VITALS: BP 143/96
[2021-01-05] MEDS: GABAPENTIN 300 MG CAPSULE PO SCH ×3 (09:12→20:40)
[2021-01-05] MEDS: LACTOBAC ACID/BULG/BIFID/THERM TABLET PO SCH ×2 (09:12→20:39)
[2021-01-05] MEDS: FAMOTIDINE 20 MG TABLET PO SCH ×2 (09:12→20:40)
[2021-01-05] MEDS: ETHYL ALCOHOL 62% ANTISEPTIC NASAL INHALANT 0.6 ML AMPUL NASAL SCH ×2 (09:12→20:39)
[2021-01-05] MEDS: ASCORBIC ACID 500 MG TABLET PO SCH (09:12)
[2021-01-05] MEDS: DOCUSATE SODIUM 100 MG CAPSULE PO SCH ×2 (09:12→20:40)
[2021-01-05] MEDS: ACETAMINOPHEN 325 MG TABLET PO PRN (09:12)
[2021-01-05] MEDS: BACLOFEN 10 MG TABLET PO SCH ×3 (09:12→20:43)
[2021-01-05] MEDS: ENOXAPARIN SODIUM 30 MG/0.3 ML PF SYRINGE SQ SCH ×2 (09:14→20:39)
[2021-01-05] MEDS: MULTIVITAMINS WITH MINERALS, THERAPEUTIC TABLET PO SCH (12:43)
[2021-01-05] MEDS: ZINC SULFATE 220 MG CAPSULE PO SCH (12:44)
[2021-01-05 16:02] VITALS: BP 138/77
[2021-01-05] MEDS: ATORVASTATIN CALCIUM 20 MG TABLET PO SCH (20:40)
[2021-01-05] MEDS: MELATONIN 3 MG TABLET PO PRN (20:40)
[2021-01-05] MEDS: DULoxetine HCL 20 MG CAPSULE PO SCH (20:43)
[2021-01-06 05:47] VITALS: BP 147/79
[2021-01-06] MEDS: ETHYL ALCOHOL 62% ANTISEPTIC NASAL INHALANT 0.6 ML AMPUL NASAL SCH ×2 (08:10→21:00)
[2021-01-06] MEDS: POLYETHYLENE GLYCOL 3350 17 GM PACKET PO SCH (08:10)
[2021-01-06] MEDS: GABAPENTIN 300 MG CAPSULE PO SCH ×3 (08:11→21:00)
[2021-01-06] MEDS: DOCUSATE SODIUM 100 MG CAPSULE PO SCH ×2 (08:11→21:00)
[2021-01-06] MEDS: ENOXAPARIN SODIUM 30 MG/0.3 ML PF SYRINGE SQ SCH ×2 (08:11→21:00)
[2021-01-06] MEDS: ASCORBIC ACID 500 MG TABLET PO SCH (08:11)
[2021-01-06] MEDS: LACTOBAC ACID/BULG/BIFID/THERM TABLET PO SCH ×2 (08:11→21:00)
[2021-01-06] MEDS: BACLOFEN 10 MG TABLET PO SCH ×3 (08:12→21:00)
[2021-01-06] MEDS: FAMOTIDINE 20 MG TABLET PO SCH ×2 (08:12→21:00)
[2021-01-06 08:15] VITALS: BP 153/88
[2021-01-06] MEDS: ACETAMINOPHEN 325 MG TABLET PO PRN ×2 (08:20→17:10)
[2021-01-06] MEDS: ZINC SULFATE 220 MG CAPSULE PO SCH (12:28)
[2021-01-06] MEDS: MULTIVITAMINS WITH MINERALS, THERAPEUTIC TABLET PO SCH (12:28)
[2021-01-06] MEDS ORDERED: GABA-1201 PO (14:59)
[2021-01-06 16:10] VITALS: BP 128/78
[2021-01-06] MEDS: MELATONIN 3 MG TABLET PO PRN (21:00)
[2021-01-06] MEDS: ATORVASTATIN CALCIUM 20 MG TABLET PO SCH (21:00)
[2021-01-06] MEDS: DULoxetine HCL 20 MG CAPSULE PO SCH (21:02)
[2021-01-07] MEDS: ACETAMINOPHEN 325 MG TABLET PO PRN ×3 (03:42→22:48)
[2021-01-07 03:51] VITALS: BP 141/81
[2021-01-07 08:36] LABS: BASOPHILS % (AUTO) 1.5 % (0.0-2.0); EOSINOPHILS % (AUTO) 1.8 % (1.0-6.0); HEMATOCRIT 38.9 % (36-46); HEMOGLOBIN 12.7 g/dL (12.0-16.0); LYMPHOCYTES # (AUTO) 2.1 K/uL (1.0-4.8); LYMPHOCYTES % (AUTO) 29.5 % (22.0-44.0); MEAN CORPUSCULAR HEMOGLOBIN 31.3 pg (26.0-34.0); MEAN CORPUSCULAR HGB CONC 32.6 G/dL (31.0-37.0); MEAN CORPUSCULAR VOLUME 96 fL (80-100); MONOCYTES # (AUTO) 0.5 K/uL (0.1-1.0); MONOCYTES % (AUTO) 7.7 % (2.0-9.0); NEUTROPHILS # (AUTO) 4.2 K/uL (1.8-7.7); NEUTROPHILS % (AUTO) 59.5 % (40.0-70.0); PLATELET COUNT (AUTO) 361 K/uL (150-450); RED BLOOD CELL COUNT(AUTO) 4.06 MIL/uL (4.00-5.20); RED CELL DISTRIBUTION WIDTH 13.7 % (11.5-14.5)
[2021-01-07 08:39] LABS: ANION GAP 10 mmol/L (8-16); CARBON DIOXIDE 28 mmol/L (22-29); CHLORIDE 106 mmol/L (98-107); CREATININE 0.43 mg/dL (0.60-1.30); GLOMERULAR FILTR. RATE CALC > 60 mL/min (>60); GLUCOSE,RANDOM 120 mg/dL (70-110); POTASSIUM 4.2 mmol/L (3.5-5.1); SODIUM SERUM 144 mmol/L (136-145); UREA NITROGEN, BLOOD 14 mg/dL (7-18)
[2021-01-07] MEDS: GABAPENTIN 300 MG CAPSULE PO SCH ×3 (08:49→22:03)
[2021-01-07] MEDS: LACTOBAC ACID/BULG/BIFID/THERM TABLET PO SCH ×2 (08:50→20:43)
[2021-01-07] MEDS: DOCUSATE SODIUM 100 MG CAPSULE PO SCH ×2 (08:50→20:43)
[2021-01-07] MEDS: ASCORBIC ACID 500 MG TABLET PO SCH (08:50)
[2021-01-07] MEDS: FAMOTIDINE 20 MG TABLET PO SCH ×2 (08:50→22:03)
[2021-01-07] MEDS: BISACODYL 10 MG RECTAL RECTAL SUPPOSITORY PR SCH (08:51)
[2021-01-07] MEDS: BACLOFEN 10 MG TABLET PO SCH ×3 (08:51→20:43)
[2021-01-07] MEDS: POLYETHYLENE GLYCOL 3350 17 GM PACKET PO SCH (08:51)
[2021-01-07] MEDS: ENOXAPARIN SODIUM 30 MG/0.3 ML PF SYRINGE SQ SCH ×2 (08:52→22:03)
[2021-01-07] MEDS: ETHYL ALCOHOL 62% ANTISEPTIC NASAL INHALANT 0.6 ML AMPUL NASAL SCH ×2 (08:55→20:43)
[2021-01-07 10:00] VITALS: BP 142/85
[2021-01-07] MEDS: MULTIVITAMINS WITH MINERALS, THERAPEUTIC TABLET PO SCH (12:47)
[2021-01-07] MEDS: ZINC SULFATE 220 MG CAPSULE PO SCH (12:47)
[2021-01-07 16:00] VITALS: BP 125/78
[2021-01-07] MEDS: DULoxetine HCL 20 MG CAPSULE PO SCH (20:43)
[2021-01-07] MEDS: ATORVASTATIN CALCIUM 20 MG TABLET PO SCH (20:43)
[2021-01-07] MEDS: MELATONIN 3 MG TABLET PO PRN (20:43)
[2021-01-07 23:48] VITALS: BP 135/79
[2021-01-08] MEDS: POLYETHYLENE GLYCOL 3350 17 GM PACKET PO SCH (08:11)
[2021-01-08] MEDS: ETHYL ALCOHOL 62% ANTISEPTIC NASAL INHALANT 0.6 ML AMPUL NASAL SCH ×2 (08:11→20:27)
[2021-01-08] MEDS: DOCUSATE SODIUM 100 MG CAPSULE PO SCH ×2 (08:12→20:28)
[2021-01-08] MEDS: LACTOBAC ACID/BULG/BIFID/THERM TABLET PO SCH ×2 (08:12→20:28)
[2021-01-08] MEDS: FAMOTIDINE 20 MG TABLET PO SCH ×2 (08:13→20:28)
[2021-01-08] MEDS: GABAPENTIN 300 MG CAPSULE PO SCH ×3 (08:13→20:28)
[2021-01-08] MEDS: ASCORBIC ACID 500 MG TABLET PO SCH (08:14)
[2021-01-08] MEDS: BACLOFEN 10 MG TABLET PO SCH ×3 (08:14→20:28)
[2021-01-08] MEDS: ENOXAPARIN SODIUM 30 MG/0.3 ML PF SYRINGE SQ SCH ×2 (08:14→20:30)
[2021-01-08 09:50] VITALS: BP 134/83
[2021-01-08] MEDS: ACETAMINOPHEN 325 MG TABLET PO PRN (09:54)
[2021-01-08] MEDS: CYCLOBENZAPRINE HCL 10 MG TABLET PO PRN (11:19)
[2021-01-08] MEDS: MULTIVITAMINS WITH MINERALS, THERAPEUTIC TABLET PO SCH (13:02)
[2021-01-08 16:33] VITALS: BP 132/66
[2021-01-08] MEDS: ATORVASTATIN CALCIUM 20 MG TABLET PO SCH (20:28)
[2021-01-08] MEDS: DULoxetine HCL 30 MG CAPSULE PO SCH (20:29)
[2021-01-08] MEDS: MELATONIN 3 MG TABLET PO PRN (20:29)
[2021-01-09 03:00] VITALS: BP 132/72
[2021-01-09] MEDS: BISACODYL 10 MG RECTAL RECTAL SUPPOSITORY PR SCH (08:24)
[2021-01-09] MEDS: LACTOBAC ACID/BULG/BIFID/THERM TABLET PO SCH ×2 (08:24→19:59)
[2021-01-09] MEDS: ETHYL ALCOHOL 62% ANTISEPTIC NASAL INHALANT 0.6 ML AMPUL NASAL SCH ×2 (08:24→19:58)
[2021-01-09] MEDS: DOCUSATE SODIUM 100 MG CAPSULE PO SCH ×2 (08:25→20:00)
[2021-01-09] MEDS: BACLOFEN 10 MG TABLET PO SCH ×3 (08:26→19:59)
[2021-01-09] MEDS: POLYETHYLENE GLYCOL 3350 17 GM PACKET PO SCH (08:26)
[2021-01-09] MEDS: GABAPENTIN 300 MG CAPSULE PO SCH ×3 (08:27→20:00)
[2021-01-09] MEDS: FAMOTIDINE 20 MG TABLET PO SCH ×2 (08:27→19:59)
[2021-01-09] MEDS: ASCORBIC ACID 500 MG TABLET PO SCH (08:27)
[2021-01-09] MEDS: ENOXAPARIN SODIUM 30 MG/0.3 ML PF SYRINGE SQ SCH ×2 (08:28→19:59)
[2021-01-09] MEDS: ACETAMINOPHEN 325 MG TABLET PO PRN (10:01)
[2021-01-09 10:05] VITALS: BP 135/91
[2021-01-09] MEDS: MULTIVITAMINS WITH MINERALS, THERAPEUTIC TABLET PO SCH (12:58)
[2021-01-09 16:30] VITALS: BP 130/74
[2021-01-09] MEDS: ATORVASTATIN CALCIUM 20 MG TABLET PO SCH (19:59)
[2021-01-09] MEDS: DULoxetine HCL 30 MG CAPSULE PO SCH (20:00)
[2021-01-09] MEDS: MELATONIN 3 MG TABLET PO PRN (20:00)
[2021-01-10 05:30] VITALS: BP 150/77
[2021-01-10 08:15] VITALS: BP 137/78
[2021-01-10] MEDS: ENOXAPARIN SODIUM 30 MG/0.3 ML PF SYRINGE SQ SCH ×2 (08:15→20:31)
[2021-01-10] MEDS: ACETAMINOPHEN 325 MG TABLET PO PRN (08:16)
[2021-01-10] MEDS: POLYETHYLENE GLYCOL 3350 17 GM PACKET PO SCH (08:16)
[2021-01-10] MEDS: GABAPENTIN 300 MG CAPSULE PO SCH ×3 (08:17→20:38)
[2021-01-10] MEDS: DOCUSATE SODIUM 100 MG CAPSULE PO SCH ×2 (08:17→20:30)
[2021-01-10] MEDS: LACTOBAC ACID/BULG/BIFID/THERM TABLET PO SCH ×2 (08:17→20:31)
[2021-01-10] MEDS: BACLOFEN 10 MG TABLET PO SCH ×3 (08:18→20:31)
[2021-01-10] MEDS: FAMOTIDINE 20 MG TABLET PO SCH ×2 (08:18→20:31)
[2021-01-10] MEDS: ETHYL ALCOHOL 62% ANTISEPTIC NASAL INHALANT 0.6 ML AMPUL NASAL SCH ×2 (08:18→20:30)
[2021-01-10] MEDS: ASCORBIC ACID 500 MG TABLET PO SCH (08:18)
[2021-01-10] MEDS: MULTIVITAMINS WITH MINERALS, THERAPEUTIC TABLET PO SCH (12:51)
[2021-01-10 14:15] LABS: APPEARANCE,URINE CLEAR (CLEAR); BILIRUBIN,URINE NEGATIVE (NEGATIVE); GLUCOSE, URINE (UA) NEGATIVE (NEGATIVE); KETONES,URINE TRACE mg/dL (NEGATIVE); LEUKOCYTE ESTERASE ,URINE NEGATIVE (NEGATIVE); NITRATE,URINE NEGATIVE (NEGATIVE); OCCULT BLOOD,URINE TRACE (NEGATIVE); PROTEIN,URINE NEGATIVE (NEGATIVE); UROBILINOGEN,URINE 0.2 mg/dL (<=1.0)
[2021-01-10 14:28] LABS: BACTERIA,URINE None Seen /HPF (None Seen); SQUAMOUS EPITHELIAL CELL,UR Few /LPF (None Seen); WBC,URINE 0-2 /HPF (0-5)
[2021-01-10 15:35] VITALS: BP 114/84
[2021-01-10] MEDS: MELATONIN 3 MG TABLET PO PRN (20:31)
[2021-01-10] MEDS: DULoxetine HCL 30 MG CAPSULE PO SCH (20:31)
[2021-01-10] MEDS: ATORVASTATIN CALCIUM 20 MG TABLET PO SCH (20:31)
[2021-01-11 02:00] VITALS: BP 136/73
[2021-01-11] MEDS: ACETAMINOPHEN 325 MG TABLET PO PRN ×2 (07:30→11:59)
[2021-01-11 08:00] VITALS: BP 150/84
[2021-01-11] MEDS: ASCORBIC ACID 500 MG TABLET PO SCH (08:32)
[2021-01-11] MEDS: POLYETHYLENE GLYCOL 3350 17 GM PACKET PO SCH (08:32)
[2021-01-11] MEDS: DOCUSATE SODIUM 100 MG CAPSULE PO SCH ×2 (08:32→20:03)
[2021-01-11] MEDS: ENOXAPARIN SODIUM 30 MG/0.3 ML PF SYRINGE SQ SCH ×2 (08:32→20:03)
[2021-01-11] MEDS: ETHYL ALCOHOL 62% ANTISEPTIC NASAL INHALANT 0.6 ML AMPUL NASAL SCH ×2 (08:33→20:02)
[2021-01-11] MEDS: GABAPENTIN 300 MG CAPSULE PO SCH ×3 (08:33→20:03)
[2021-01-11] MEDS: LACTOBAC ACID/BULG/BIFID/THERM TABLET PO SCH ×2 (08:33→20:03)
[2021-01-11] MEDS: FAMOTIDINE 20 MG TABLET PO SCH ×2 (08:33→20:03)
[2021-01-11] MEDS: BACLOFEN 10 MG TABLET PO SCH ×3 (08:34→20:03)
[2021-01-11] MEDS: BISACODYL 10 MG RECTAL RECTAL SUPPOSITORY PR SCH (09:58)
[2021-01-11] MEDS: MULTIVITAMINS WITH MINERALS, THERAPEUTIC TABLET PO SCH (13:03)
[2021-01-11 15:45] VITALS: BP 137/82
[2021-01-11] MEDS: DULoxetine HCL 30 MG CAPSULE PO SCH (20:04)
[2021-01-11] MEDS: ATORVASTATIN CALCIUM 20 MG TABLET PO SCH (20:04)
[2021-01-11] MEDS: MELATONIN 3 MG TABLET PO PRN (22:02)
[2021-01-12 05:46] VITALS: BP 135/83
[2021-01-12] MEDS: GABAPENTIN 300 MG CAPSULE PO SCH ×3 (07:56→20:32)
[2021-01-12] MEDS: DOCUSATE SODIUM 100 MG CAPSULE PO SCH ×2 (07:56→20:31)
[2021-01-12] MEDS: ENOXAPARIN SODIUM 30 MG/0.3 ML PF SYRINGE SQ SCH ×2 (07:56→20:30)
[2021-01-12] MEDS: BACLOFEN 10 MG TABLET PO SCH ×3 (07:57→20:32)
[2021-01-12] MEDS: ASCORBIC ACID 500 MG TABLET PO SCH (07:57)
[2021-01-12] MEDS: FAMOTIDINE 20 MG TABLET PO SCH ×2 (07:57→20:31)
[2021-01-12] MEDS: POLYETHYLENE GLYCOL 3350 17 GM PACKET PO SCH (07:57)
[2021-01-12] MEDS: LACTOBAC ACID/BULG/BIFID/THERM TABLET PO SCH ×2 (07:57→20:31)
[2021-01-12] MEDS: ETHYL ALCOHOL 62% ANTISEPTIC NASAL INHALANT 0.6 ML AMPUL NASAL SCH ×2 (07:58→20:33)
[2021-01-12] MEDS: ACETAMINOPHEN 325 MG TABLET PO PRN (08:22)
[2021-01-12 09:00] VITALS: BP 136/92
[2021-01-12] MEDS: MULTIVITAMINS WITH MINERALS, THERAPEUTIC TABLET PO SCH (13:08)
[2021-01-12 15:50] VITALS: BP 132/74
[2021-01-12] MEDS: OXYBUTYNIN CHLORIDE 5 MG TABLET PO SCH ×2 (16:07→20:32)
[2021-01-12] MEDS: DULoxetine HCL 30 MG CAPSULE PO SCH (20:31)
[2021-01-12] MEDS: ATORVASTATIN CALCIUM 20 MG TABLET PO SCH (20:32)
[2021-01-12] MEDS: MELATONIN 3 MG TABLET PO PRN (22:35)
[2021-01-13 05:30] VITALS: BP 125/77
[2021-01-13 07:29] VITALS: BP 124/78
[2021-01-13] MEDS: DOCUSATE SODIUM 100 MG CAPSULE PO SCH ×2 (08:39→20:32)
[2021-01-13] MEDS: FAMOTIDINE 20 MG TABLET PO SCH ×2 (08:39→20:31)
[2021-01-13] MEDS: ASCORBIC ACID 500 MG TABLET PO SCH (08:39)
[2021-01-13] MEDS: OXYBUTYNIN CHLORIDE 5 MG TABLET PO SCH ×3 (08:39→20:31)
[2021-01-13] MEDS: ETHYL ALCOHOL 62% ANTISEPTIC NASAL INHALANT 0.6 ML AMPUL NASAL SCH ×2 (08:39→20:32)
[2021-01-13] MEDS: LACTOBAC ACID/BULG/BIFID/THERM TABLET PO SCH ×2 (08:39→20:31)
[2021-01-13] MEDS: GABAPENTIN 300 MG CAPSULE PO SCH ×3 (08:40→20:32)
[2021-01-13] MEDS: POLYETHYLENE GLYCOL 3350 17 GM PACKET PO SCH (08:40)
[2021-01-13] MEDS: BACLOFEN 10 MG TABLET PO SCH ×3 (08:40→20:31)
[2021-01-13] MEDS: ENOXAPARIN SODIUM 30 MG/0.3 ML PF SYRINGE SQ SCH ×2 (08:40→20:31)
[2021-01-13] MEDS: BISACODYL 10 MG RECTAL RECTAL SUPPOSITORY PR SCH (09:02)
[2021-01-13] MEDS: MULTIVITAMINS WITH MINERALS, THERAPEUTIC TABLET PO SCH (13:15)
[2021-01-13 16:15] VITALS: BP 126/81
[2021-01-13] MEDS: DULoxetine HCL 30 MG CAPSULE PO SCH (20:32)
[2021-01-13] MEDS: ATORVASTATIN CALCIUM 20 MG TABLET PO SCH (20:32)
[2021-01-13] MEDS: ACETAMINOPHEN 325 MG TABLET PO PRN (20:41)
[2021-01-13] MEDS: MELATONIN 3 MG TABLET PO PRN (20:41)
[2021-01-14 02:46] VITALS: BP 105/57
[2021-01-14] MEDS: ENOXAPARIN SODIUM 30 MG/0.3 ML PF SYRINGE SQ SCH ×2 (08:43→19:59)
[2021-01-14] MEDS: BACLOFEN 10 MG TABLET PO SCH ×3 (08:44→20:00)
[2021-01-14] MEDS: POLYETHYLENE GLYCOL 3350 17 GM PACKET PO SCH (08:44)
[2021-01-14] MEDS: DOCUSATE SODIUM 100 MG CAPSULE PO SCH ×2 (08:45→20:01)
[2021-01-14] MEDS: LACTOBAC ACID/BULG/BIFID/THERM TABLET PO SCH ×2 (08:45→20:00)
[2021-01-14] MEDS: GABAPENTIN 300 MG CAPSULE PO SCH ×3 (08:45→20:00)
[2021-01-14] MEDS: FAMOTIDINE 20 MG TABLET PO SCH ×2 (08:45→20:00)
[2021-01-14] MEDS: ETHYL ALCOHOL 62% ANTISEPTIC NASAL INHALANT 0.6 ML AMPUL NASAL SCH ×2 (08:46→19:59)
[2021-01-14] MEDS: OXYBUTYNIN CHLORIDE 5 MG TABLET PO SCH ×3 (08:46→20:01)
[2021-01-14] MEDS: ASCORBIC ACID 500 MG TABLET PO SCH (08:46)
[2021-01-14 09:50] VITALS: BP 130/87
[2021-01-14] MEDS: ACETAMINOPHEN 325 MG TABLET PO PRN (09:53)
[2021-01-14] MEDS: MULTIVITAMINS WITH MINERALS, THERAPEUTIC TABLET PO SCH (13:12)
[2021-01-14 16:02] VITALS: BP 124/80
[2021-01-14] MEDS: DULoxetine HCL 30 MG CAPSULE PO SCH (20:00)
[2021-01-14] MEDS: MELATONIN 3 MG TABLET PO PRN (20:01)
[2021-01-14] MEDS: ATORVASTATIN CALCIUM 20 MG TABLET PO SCH (20:01)
[2021-01-15 06:00] VITALS: BP 137/79
[2021-01-15] MEDS: BISACODYL 10 MG RECTAL RECTAL SUPPOSITORY PR SCH (08:52)
[2021-01-15] MEDS: ENOXAPARIN SODIUM 30 MG/0.3 ML PF SYRINGE SQ SCH ×2 (08:53→20:22)
[2021-01-15] MEDS: POLYETHYLENE GLYCOL 3350 17 GM PACKET PO SCH (08:54)
[2021-01-15] MEDS: GABAPENTIN 300 MG CAPSULE PO SCH ×3 (08:55→20:22)
[2021-01-15] MEDS: LACTOBAC ACID/BULG/BIFID/THERM TABLET PO SCH ×2 (08:55→20:22)
[2021-01-15] MEDS: DOCUSATE SODIUM 100 MG CAPSULE PO SCH ×2 (08:55→20:22)
[2021-01-15] MEDS: OXYBUTYNIN CHLORIDE 5 MG TABLET PO SCH ×3 (08:55→20:24)
[2021-01-15] MEDS: ASCORBIC ACID 500 MG TABLET PO SCH (08:55)
[2021-01-15] MEDS: BACLOFEN 10 MG TABLET PO SCH ×3 (08:55→20:23)
[2021-01-15] MEDS: FAMOTIDINE 20 MG TABLET PO SCH ×2 (08:55→20:22)
[2021-01-15] MEDS: ETHYL ALCOHOL 62% ANTISEPTIC NASAL INHALANT 0.6 ML AMPUL NASAL SCH ×2 (08:55→20:23)
[2021-01-15 09:08] VITALS: BP 137/75
[2021-01-15] MEDS: ACETAMINOPHEN 325 MG TABLET PO PRN (09:08)
[2021-01-15] MEDS: MULTIVITAMINS WITH MINERALS, THERAPEUTIC TABLET PO SCH (11:37)
[2021-01-15 15:00] VITALS: BP 115/74
[2021-01-15] MEDS: ATORVASTATIN CALCIUM 20 MG TABLET PO SCH (20:22)
[2021-01-15] MEDS: DULoxetine HCL 30 MG CAPSULE PO SCH (20:24)
[2021-01-15 23:10] VITALS: BP 118/72
[2021-01-16] MEDS: ACETAMINOPHEN 325 MG TABLET PO PRN (05:37)
[2021-01-16] MEDS: DOCUSATE SODIUM 100 MG CAPSULE PO SCH ×2 (08:18→20:21)
[2021-01-16] MEDS: ENOXAPARIN SODIUM 30 MG/0.3 ML PF SYRINGE SQ SCH ×2 (08:18→20:24)
[2021-01-16] MEDS: OXYBUTYNIN CHLORIDE 5 MG TABLET PO SCH ×3 (08:19→20:21)
[2021-01-16] MEDS: GABAPENTIN 300 MG CAPSULE PO SCH ×3 (08:19→20:21)
[2021-01-16] MEDS: ASCORBIC ACID 500 MG TABLET PO SCH (08:19)
[2021-01-16] MEDS: LACTOBAC ACID/BULG/BIFID/THERM TABLET PO SCH ×2 (08:20→20:21)
[2021-01-16] MEDS: BACLOFEN 10 MG TABLET PO SCH ×3 (08:20→20:21)
[2021-01-16] MEDS: FAMOTIDINE 20 MG TABLET PO SCH ×2 (08:20→20:22)
[2021-01-16] MEDS: POLYETHYLENE GLYCOL 3350 17 GM PACKET PO SCH (08:20)
[2021-01-16] MEDS: ETHYL ALCOHOL 62% ANTISEPTIC NASAL INHALANT 0.6 ML AMPUL NASAL SCH ×2 (08:20→20:21)
[2021-01-16 08:30] VITALS: BP 135/76
[2021-01-16] MEDS: MULTIVITAMINS WITH MINERALS, THERAPEUTIC TABLET PO SCH (12:42)
[2021-01-16 16:04] VITALS: BP 121/77
[2021-01-16] MEDS: ATORVASTATIN CALCIUM 20 MG TABLET PO SCH (20:21)
[2021-01-16] MEDS: DULoxetine HCL 30 MG CAPSULE PO SCH (20:21)
[2021-01-16] MEDS: MELATONIN 3 MG TABLET PO PRN (20:22)
[2021-01-17 05:30] VITALS: BP 135/80
[2021-01-17] MEDS: BISACODYL 10 MG RECTAL RECTAL SUPPOSITORY PR SCH (07:36)
[2021-01-17 07:44] VITALS: BP 125/77
[2021-01-17] MEDS: ACETAMINOPHEN 325 MG TABLET PO PRN (07:44)
[2021-01-17] MEDS: ENOXAPARIN SODIUM 30 MG/0.3 ML PF SYRINGE SQ SCH ×2 (07:44→20:38)
[2021-01-17] MEDS: OXYBUTYNIN CHLORIDE 5 MG TABLET PO SCH ×3 (07:45→20:37)
[2021-01-17] MEDS: BACLOFEN 10 MG TABLET PO SCH ×3 (07:45→20:37)
[2021-01-17] MEDS: LACTOBAC ACID/BULG/BIFID/THERM TABLET PO SCH ×2 (07:45→20:37)
[2021-01-17] MEDS: DOCUSATE SODIUM 100 MG CAPSULE PO SCH ×2 (07:45→20:37)
[2021-01-17] MEDS: FAMOTIDINE 20 MG TABLET PO SCH ×2 (07:45→20:37)
[2021-01-17] MEDS: ETHYL ALCOHOL 62% ANTISEPTIC NASAL INHALANT 0.6 ML AMPUL NASAL SCH ×2 (07:45→20:37)
[2021-01-17] MEDS: GABAPENTIN 300 MG CAPSULE PO SCH ×3 (07:46→20:40)
[2021-01-17] MEDS: ASCORBIC ACID 500 MG TABLET PO SCH (07:46)
[2021-01-17] MEDS: POLYETHYLENE GLYCOL 3350 17 GM PACKET PO SCH (07:47)
[2021-01-17] MEDS: MULTIVITAMINS WITH MINERALS, THERAPEUTIC TABLET PO SCH (12:39)
[2021-01-17 16:02] VITALS: BP 123/86
[2021-01-17] MEDS: MELATONIN 3 MG TABLET PO PRN (20:37)
[2021-01-17] MEDS: DULoxetine HCL 30 MG CAPSULE PO SCH (20:37)
[2021-01-17] MEDS: ATORVASTATIN CALCIUM 20 MG TABLET PO SCH (20:37)
[2021-01-18 05:33] VITALS: BP 141/88
[2021-01-18] MEDS: ENOXAPARIN SODIUM 30 MG/0.3 ML PF SYRINGE SQ SCH ×2 (08:40→19:51)
[2021-01-18] MEDS: DOCUSATE SODIUM 100 MG CAPSULE PO SCH ×2 (08:41→19:51)
[2021-01-18] MEDS: OXYBUTYNIN CHLORIDE 5 MG TABLET PO SCH ×3 (08:41→19:52)
[2021-01-18] MEDS: POLYETHYLENE GLYCOL 3350 17 GM PACKET PO SCH (08:41)
[2021-01-18] MEDS: GABAPENTIN 300 MG CAPSULE PO SCH ×3 (08:41→19:52)
[2021-01-18] MEDS: BACLOFEN 10 MG TABLET PO SCH ×3 (08:42→19:51)
[2021-01-18] MEDS: ASCORBIC ACID 500 MG TABLET PO SCH (08:42)
[2021-01-18] MEDS: FAMOTIDINE 20 MG TABLET PO SCH ×2 (08:42→19:51)
[2021-01-18] MEDS: LACTOBAC ACID/BULG/BIFID/THERM TABLET PO SCH ×2 (08:42→19:52)
[2021-01-18 08:45] VITALS: BP 137/97
[2021-01-18] MEDS: ACETAMINOPHEN 325 MG TABLET PO PRN (08:48)
[2021-01-18] MEDS: ETHYL ALCOHOL 62% ANTISEPTIC NASAL INHALANT 0.6 ML AMPUL NASAL SCH ×2 (08:48→19:52)
[2021-01-18] MEDS: MULTIVITAMINS WITH MINERALS, THERAPEUTIC TABLET PO SCH (12:56)
[2021-01-18 16:30] VITALS: BP 127/85
[2021-01-18] MEDS: MELATONIN 3 MG TABLET PO PRN (19:51)
[2021-01-18] MEDS: ATORVASTATIN CALCIUM 20 MG TABLET PO SCH (19:51)
[2021-01-18] MEDS: DULoxetine HCL 30 MG CAPSULE PO SCH (19:51)
[2021-01-19 03:30] VITALS: BP 133/79
[2021-01-19] MEDS: ENOXAPARIN SODIUM 30 MG/0.3 ML PF SYRINGE SQ SCH ×2 (08:56→20:38)
[2021-01-19] MEDS: ACETAMINOPHEN 325 MG TABLET PO PRN (08:56)
[2021-01-19] MEDS: GABAPENTIN 300 MG CAPSULE PO SCH ×3 (08:56→20:38)
[2021-01-19] MEDS: DOCUSATE SODIUM 100 MG CAPSULE PO SCH ×2 (08:56→20:37)
[2021-01-19] MEDS: OXYBUTYNIN CHLORIDE 5 MG TABLET PO SCH ×3 (08:56→20:38)
[2021-01-19] MEDS: FAMOTIDINE 20 MG TABLET PO SCH ×2 (08:56→20:38)
[2021-01-19] MEDS: LACTOBAC ACID/BULG/BIFID/THERM TABLET PO SCH ×2 (08:56→20:38)
[2021-01-19] MEDS: BACLOFEN 10 MG TABLET PO SCH ×3 (08:57→20:39)
[2021-01-19] MEDS: POLYETHYLENE GLYCOL 3350 17 GM PACKET PO SCH (08:57)
[2021-01-19] MEDS: BISACODYL 10 MG RECTAL RECTAL SUPPOSITORY PR SCH (08:57)
[2021-01-19] MEDS: ASCORBIC ACID 500 MG TABLET PO SCH (08:57)
[2021-01-19 09:00] VITALS: BP 141/90
[2021-01-19] MEDS: ETHYL ALCOHOL 62% ANTISEPTIC NASAL INHALANT 0.6 ML AMPUL NASAL SCH ×2 (09:00→20:37)
[2021-01-19] MEDS: MULTIVITAMINS WITH MINERALS, THERAPEUTIC TABLET PO SCH (12:24)
[2021-01-19 15:45] VITALS: BP 124/71
[2021-01-19] MEDS: MELATONIN 3 MG TABLET PO PRN (20:38)
[2021-01-19] MEDS: ATORVASTATIN CALCIUM 20 MG TABLET PO SCH (20:38)
[2021-01-19] MEDS: DULoxetine HCL 30 MG CAPSULE PO SCH (20:38)
[2021-01-20 05:00] VITALS: BP 129/79
[2021-01-20] MEDS: OXYBUTYNIN CHLORIDE 5 MG TABLET PO SCH ×3 (08:38→19:50)
[2021-01-20] MEDS: ASCORBIC ACID 500 MG TABLET PO SCH (08:38)
[2021-01-20] MEDS: GABAPENTIN 300 MG CAPSULE PO SCH ×3 (08:38→19:51)
[2021-01-20] MEDS: LACTOBAC ACID/BULG/BIFID/THERM TABLET PO SCH ×2 (08:38→19:51)
[2021-01-20] MEDS: POLYETHYLENE GLYCOL 3350 17 GM PACKET PO SCH ×3 (08:39→08:56)
[2021-01-20] MEDS: FAMOTIDINE 20 MG TABLET PO SCH ×2 (08:39→19:48)
[2021-01-20] MEDS: DOCUSATE SODIUM 100 MG CAPSULE PO SCH ×2 (08:39→19:49)
[2021-01-20] MEDS: BACLOFEN 10 MG TABLET PO SCH ×3 (08:40→19:50)
[2021-01-20] MEDS: ACETAMINOPHEN 325 MG TABLET PO PRN ×2 (08:41→23:00)
[2021-01-20] MEDS: ETHYL ALCOHOL 62% ANTISEPTIC NASAL INHALANT 0.6 ML AMPUL NASAL SCH ×2 (08:51→19:53)
[2021-01-20 09:00] VITALS: BP 124/76
[2021-01-20] MEDS: ENOXAPARIN SODIUM 30 MG/0.3 ML PF SYRINGE SQ SCH ×2 (09:01→19:49)
[2021-01-20] MEDS: MULTIVITAMINS WITH MINERALS, THERAPEUTIC TABLET PO SCH (12:25)
[2021-01-20 16:30] VITALS: BP 110/78
[2021-01-20] MEDS: DULoxetine HCL 30 MG CAPSULE PO SCH (19:48)
[2021-01-20] MEDS: MELATONIN 3 MG TABLET PO PRN (19:49)
[2021-01-20] MEDS: ATORVASTATIN CALCIUM 20 MG TABLET PO SCH (19:51)
[2021-01-20] MEDS ORDERED: GABA-1181 PO (20:09)
[2021-01-20] MEDS ORDERED: DOCU-270 PO (20:18)
[2021-01-20] MEDS ORDERED: ACID1TAB13 PO (20:18)
[2021-01-20] MEDS ORDERED: OXYB5TAB20 PO (20:18)
[2021-01-20] MEDS ORDERED: ENOX30DI5 SQ (20:18)
[2021-01-20] MEDS ORDERED: POLY17PO47 PO (20:18)
[2021-01-20] MEDS ORDERED: DULO30CA89 PO (20:18)
[2021-01-20] MEDS ORDERED: BISA10SU11 PR (20:18)
[2021-01-20] MEDS ORDERED: BACL5TAB PO (20:18)
[2021-01-20 23:00] VITALS: BP 116/72
[2021-01-21] MEDS: SUMAtriptan SUCCINATE 25 MG TABLET PO PRN ×2 (06:25→09:09)
[2021-01-21 06:48] LABS: BASOPHILS % (AUTO) 0.9 % (0.0-2.0); EOSINOPHILS % (AUTO) 0.5 % (1.0-6.0); HEMATOCRIT 36.4 % (36-46); HEMOGLOBIN 12.1 g/dL (12.0-16.0); LYMPHOCYTES # (AUTO) 1.1 K/uL (1.0-4.8); LYMPHOCYTES % (AUTO) 16.8 % (22.0-44.0); MEAN CORPUSCULAR HEMOGLOBIN 31.5 pg (26.0-34.0); MEAN CORPUSCULAR HGB CONC 33.2 G/dL (31.0-37.0); MEAN CORPUSCULAR VOLUME 95 fL (80-100); MONOCYTES # (AUTO) 0.4 K/uL (0.1-1.0); MONOCYTES % (AUTO) 5.5 % (2.0-9.0); NEUTROPHILS # (AUTO) 5.1 K/uL (1.8-7.7); NEUTROPHILS % (AUTO) 76.3 % (40.0-70.0); PLATELET COUNT (AUTO) 257 K/uL (150-450); RED BLOOD CELL COUNT(AUTO) 3.83 MIL/uL (4.00-5.20); RED CELL DISTRIBUTION WIDTH 13.8 % (11.5-14.5)
[2021-01-21 06:57] LABS: ANION GAP 14 mmol/L (8-16); CARBON DIOXIDE 26 mmol/L (22-29); CHLORIDE 103 mmol/L (98-107); CREATININE 0.35 mg/dL (0.60-1.30); GLOMERULAR FILTR. RATE CALC > 60 mL/min (>60); GLUCOSE,RANDOM 133 mg/dL (70-110); POTASSIUM 3.9 mmol/L (3.5-5.1); SODIUM SERUM 143 mmol/L (136-145); UREA NITROGEN, BLOOD 10 mg/dL (7-18)
[2021-01-21] MEDS: DOCUSATE SODIUM 100 MG CAPSULE PO SCH ×2 (08:08→20:05)
[2021-01-21] MEDS: ASCORBIC ACID 500 MG TABLET PO SCH (08:08)
[2021-01-21] MEDS: FAMOTIDINE 20 MG TABLET PO SCH ×2 (08:08→20:05)
[2021-01-21] MEDS: LACTOBAC ACID/BULG/BIFID/THERM TABLET PO SCH ×2 (08:08→20:05)
[2021-01-21] MEDS: GABAPENTIN 300 MG CAPSULE PO SCH ×3 (08:08→20:05)
[2021-01-21] MEDS: OXYBUTYNIN CHLORIDE 5 MG TABLET PO SCH ×3 (08:08→20:05)
[2021-01-21] MEDS: BACLOFEN 10 MG TABLET PO SCH ×3 (08:08→20:06)
[2021-01-21] MEDS: BISACODYL 10 MG RECTAL RECTAL SUPPOSITORY PR SCH (08:08)
[2021-01-21] MEDS: ENOXAPARIN SODIUM 30 MG/0.3 ML PF SYRINGE SQ SCH ×2 (08:09→20:05)
[2021-01-21] MEDS: ETHYL ALCOHOL 62% ANTISEPTIC NASAL INHALANT 0.6 ML AMPUL NASAL SCH ×2 (08:17→20:05)
[2021-01-21] MEDS: POLYETHYLENE GLYCOL 3350 17 GM PACKET PO SCH (08:18)
[2021-01-21 08:30] VITALS: BP 148/68
[2021-01-21] MEDS: MULTIVITAMINS WITH MINERALS, THERAPEUTIC TABLET PO SCH (12:43)
[2021-01-21 15:16] VITALS: BP 117/79
[2021-01-21] MEDS: ATORVASTATIN CALCIUM 20 MG TABLET PO SCH (20:05)
[2021-01-21] MEDS: MELATONIN 3 MG TABLET PO PRN (20:05)
[2021-01-21] MEDS: DULoxetine HCL 30 MG CAPSULE PO SCH (20:05)
[2021-01-22 02:22] VITALS: BP 97/68
[2021-01-22] MEDS: SUMAtriptan SUCCINATE 25 MG TABLET PO PRN (02:22)
[2021-01-22] MEDS: ACETAMINOPHEN 325 MG TABLET PO PRN (08:27)
[2021-01-22] MEDS: DOCUSATE SODIUM 100 MG CAPSULE PO SCH ×2 (08:27→20:01)
[2021-01-22] MEDS: LACTOBAC ACID/BULG/BIFID/THERM TABLET PO SCH ×2 (08:28→20:01)
[2021-01-22] MEDS: GABAPENTIN 300 MG CAPSULE PO SCH ×3 (08:28→20:01)
[2021-01-22] MEDS: POLYETHYLENE GLYCOL 3350 17 GM PACKET PO SCH (08:28)
[2021-01-22] MEDS: OXYBUTYNIN CHLORIDE 5 MG TABLET PO SCH ×3 (08:28→20:02)
[2021-01-22] MEDS: BACLOFEN 10 MG TABLET PO SCH ×3 (08:29→20:01)
[2021-01-22] MEDS: FAMOTIDINE 20 MG TABLET PO SCH ×2 (08:29→20:01)
[2021-01-22] MEDS: ASCORBIC ACID 500 MG TABLET PO SCH (08:29)
[2021-01-22] MEDS: ETHYL ALCOHOL 62% ANTISEPTIC NASAL INHALANT 0.6 ML AMPUL NASAL SCH ×2 (08:29→20:00)
[2021-01-22 08:30] VITALS: BP 129/72
[2021-01-22] MEDS: ENOXAPARIN SODIUM 30 MG/0.3 ML PF SYRINGE SQ SCH ×2 (08:30→20:02)
[2021-01-22] MEDS: MULTIVITAMINS WITH MINERALS, THERAPEUTIC TABLET PO SCH (12:29)
[2021-01-22 16:02] VITALS: BP 133/77
[2021-01-22] MEDS: DULoxetine HCL 30 MG CAPSULE PO SCH (20:01)
[2021-01-22] MEDS: MELATONIN 3 MG TABLET PO PRN (20:01)
[2021-01-22] MEDS: ATORVASTATIN CALCIUM 20 MG TABLET PO SCH (20:01)
[2021-01-23 05:00] VITALS: BP 117/70
[2021-01-23] MEDS: BISACODYL 10 MG RECTAL RECTAL SUPPOSITORY PR SCH (07:23)
[2021-01-23] MEDS: ETHYL ALCOHOL 62% ANTISEPTIC NASAL INHALANT 0.6 ML AMPUL NASAL SCH ×2 (08:31→20:11)
[2021-01-23] MEDS: ENOXAPARIN SODIUM 30 MG/0.3 ML PF SYRINGE SQ SCH ×2 (08:31→20:10)
[2021-01-23] MEDS: BACLOFEN 10 MG TABLET PO SCH ×3 (08:32→20:10)
[2021-01-23] MEDS: OXYBUTYNIN CHLORIDE 5 MG TABLET PO SCH ×3 (08:32→20:10)
[2021-01-23] MEDS: GABAPENTIN 300 MG CAPSULE PO SCH ×3 (08:32→20:10)
[2021-01-23] MEDS: DOCUSATE SODIUM 100 MG CAPSULE PO SCH ×2 (08:32→20:10)
[2021-01-23] MEDS: ASCORBIC ACID 500 MG TABLET PO SCH (08:32)
[2021-01-23] MEDS: LACTOBAC ACID/BULG/BIFID/THERM TABLET PO SCH ×2 (08:32→20:10)
[2021-01-23] MEDS: FAMOTIDINE 20 MG TABLET PO SCH ×2 (08:33→20:10)
[2021-01-23] MEDS: POLYETHYLENE GLYCOL 3350 17 GM PACKET PO SCH (08:33)
[2021-01-23] MEDS: ACETAMINOPHEN 325 MG TABLET PO PRN (08:38)
[2021-01-23 08:40] VITALS: BP 128/86
[2021-01-23] MEDS: MULTIVITAMINS WITH MINERALS, THERAPEUTIC TABLET PO SCH (12:23)
[2021-01-23 16:02] VITALS: BP 140/87
[2021-01-23] MEDS: DULoxetine HCL 30 MG CAPSULE PO SCH (20:10)
[2021-01-23] MEDS: ATORVASTATIN CALCIUM 20 MG TABLET PO SCH (20:10)
[2021-01-23] MEDS: MELATONIN 3 MG TABLET PO PRN (20:10)
[2021-01-24 05:00] VITALS: BP 129/82
[2021-01-24] MEDS: ENOXAPARIN SODIUM 30 MG/0.3 ML PF SYRINGE SQ SCH (08:13)
[2021-01-24] MEDS: BACLOFEN 10 MG TABLET PO SCH (08:13)
[2021-01-24] MEDS: ETHYL ALCOHOL 62% ANTISEPTIC NASAL INHALANT 0.6 ML AMPUL NASAL SCH (08:13)
[2021-01-24] MEDS: DOCUSATE SODIUM 100 MG CAPSULE PO SCH (08:14)
[2021-01-24] MEDS: POLYETHYLENE GLYCOL 3350 17 GM PACKET PO SCH (08:14)
[2021-01-24] MEDS: GABAPENTIN 300 MG CAPSULE PO SCH (08:14)
[2021-01-24 08:15] VITALS: BP 129/86
[2021-01-24] MEDS: ASCORBIC ACID 500 MG TABLET PO SCH (08:15)
[2021-01-24] MEDS: LACTOBAC ACID/BULG/BIFID/THERM TABLET PO SCH (08:15)
[2021-01-24] MEDS: FAMOTIDINE 20 MG TABLET PO SCH (08:15)
[2021-01-24] MEDS: OXYBUTYNIN CHLORIDE 5 MG TABLET PO SCH (08:15)
[2021-01-24] MEDS: ACETAMINOPHEN 325 MG TABLET PO PRN (08:15)
[2021-01-24] MEDS: MULTIVITAMINS WITH MINERALS, THERAPEUTIC TABLET PO SCH (12:01)
== END 2021-01-24 12:20 | disposition home health service (06) | DRG 52 ==
LOC: 2WR 12-17 10:50
PROVIDERS: ADMIT Physical Medicine & Rehabilitation; ATTEND Physical Medicine & Rehabilitation
DX: G82.20 Paraplegia, unspecified (principal); E87.1 Hypo-osmolality and hyponatremia; N39.0 Urinary tract infection, site not specified; D64.9 Anemia, unspecified; E78.2 Mixed hyperlipidemia; G43.909 Migraine, unspecified, not intractable, without status migrainosus; I10 Essential (primary) hypertension; M81.0 Age-related osteoporosis without current pathological fracture; N31.9 Neuromuscular dysfunction of bladder, unspecified; D48.0 Neoplasm of uncertain behavior of bone and articular cartilage; L89.150 Pressure ulcer of sacral region, unstageable; E78.00 Pure hypercholesterolemia, unspecified; G89.29 Other chronic pain; Z79.01 Long term (current) use of anticoagulants; Z88.0 Allergy status to penicillin; Z88.2 Allergy status to sulfonamides; Y99.8 Other external cause status; Z80.3 Family history of malignant neoplasm of breast; Z82.49 Family history of ischemic heart disease and other diseases of the circulatory system; Z83.3 Family history of diabetes mellitus
CPT/HCPCS: 80048; 80053; 81001; 85025; 87077; 87081; 87086; 87186; 90686; 90732; 93970; 97110; 97112; 97116; 97140; 97150; 97163; 97167; 97530; 97535; 99366; J1650; Q0162

== ENCOUNTER → 2021-08-13 | Outpatient (CLI) | payer MEDICARE, BC ==
[~2021-08-13] MED LIST: ACID1TAB13 PO; ASCO500 PO; ATOR20TA86 PO; BACL5TAB PO; BISA10SU11 PR; DULO-114 PO; ENOX30SY19 SQ; FAMO20 PO; GABA-1181 PO; MULT-1133 PO; OXYB5TAB20 PO; POLY17PO47 PO
== END | disposition home or self-care (01) ==
LOC: RADPV 14:18
PROVIDERS: ATTEND Physical Medicine & Rehabilitation
DX: R22.41 Localized swelling, mass and lump, right lower limb (principal)
CPT/HCPCS: 93971

== ENCOUNTER 2021-12-05 00:21 | Emergency (ER) | payer MEDICARE, BC ==
[~2021-12-05] VITALS: Ht 162.6 cm; Wt 68.2 kg
[2021-12-05] MEDS ORDERED: ALEN70TA65 PO (00:34)
[2021-12-05] MEDS ORDERED: ASPI-1450 PO (00:34)
[2021-12-05] MEDS ORDERED: GABA-1201 PO (00:34)
[2021-12-05] MEDS ORDERED: CIPR500T10 PO (00:34)
[2021-12-05] MEDS ORDERED: ALBU8HFA IH (00:34)
[2021-12-05] MEDS ORDERED: HYDROCODONE/ACETAMINOPHEN 5-325 MG TABLET PO ONE (00:45)
[2021-12-05 01:08] VITALS: BP 136/74
== END 2021-12-05 02:59 | disposition home or self-care (01) ==
LOC: EMS 00:21
DX: M54.50 Low back pain, unspecified (principal); G89.29 Other chronic pain; D49.7 Neoplasm of unspecified behavior of endocrine glands and other parts of nervous system; E78.00 Pure hypercholesterolemia, unspecified; I10 Essential (primary) hypertension; G82.20 Paraplegia, unspecified; Z88.0 Allergy status to penicillin
CPT/HCPCS: 99283

== ENCOUNTER → 2022-01-07 | Outpatient (CLI) | payer MEDICARE, BC ==
[~2022-01-07] MED LIST changes: -ACID1TAB13 PO; +ALBU8HFA IH; +ALEN70TA65 PO; +ASPI-1450 PO; -BISA10SU11 PR; +CIPR500T10 PO; -DULO-114 PO; -ENOX30SY19 SQ; -FAMO20 PO; -GABA-1181 PO; +GABA-1201 PO; -OXYB5TAB20 PO; -POLY17PO47 PO
== END | disposition home or self-care (01) ==
LOC: RADPV 12:28
PROVIDERS: ATTEND Internal Medicine
DX: I82.409 Acute embolism and thrombosis of unspecified deep veins of unspecified lower extremity (principal); R22.43 Localized swelling, mass and lump, lower limb, bilateral
CPT/HCPCS: 93306; 93970

== ENCOUNTER 2022-11-21 12:05 | Emergency (ER) | payer MEDICARE, BC ==
[~2022-11-21] VITALS: Ht 157.5 cm; Wt 61.4 kg
[~2022-11-21 12:05] MED LIST changes: +ALBU18HF12 IH; -ALBU8HFA IH; +ATOR20TA PO; -ATOR20TA86 PO; +BACL10TA PO; -BACL5TAB PO; +CHOL200059 PO; -CIPR500T10 PO; +HYDR-4061 PO; +LEVO-72 PO
[2022-11-21 12:09] VITALS: TEMP 98.3
[2022-11-21 12:42] LABS: BASOPHILS % (AUTO) 1.2 % (0.0-2.0); HEMATOCRIT 42.2 % (36-46); HEMOGLOBIN 14.1 g/dL (12.0-16.0); LYMPHOCYTES # (AUTO) 2.2 K/uL (1.0-4.8); LYMPHOCYTES % (AUTO) 34.8 % (22.0-44.0); MEAN CORPUSCULAR HEMOGLOBIN 31.4 pg (26.0-34.0); MEAN CORPUSCULAR HGB CONC 33.3 G/dL (31.0-37.0); MEAN CORPUSCULAR VOLUME 94 fL (80-100); MONOCYTES # (AUTO) 0.5 K/uL (0.1-1.0); MONOCYTES % (AUTO) 7.5 % (2.0-9.0); NEUTROPHILS # (AUTO) 3.5 K/uL (1.8-7.7); NEUTROPHILS % (AUTO) 54.5 % (40.0-70.0); PLATELET COUNT (AUTO) 248 K/uL (150-450); RED BLOOD CELL COUNT(AUTO) 4.48 MIL/uL (4.00-5.20); RED CELL DISTRIBUTION WIDTH 15.1 % (11.5-14.5); WHITE BLOOD COUNT (AUTO) 6.4 K/uL (4.5-11.0)
[2022-11-21 12:51] LABS: ANION GAP 11 mmol/L (8-16); CALCIUM, TOTAL 9.6 mg/dL (8.8-10.5); CARBON DIOXIDE 25 mmol/L (22-29); CHLORIDE 107 mmol/L (98-107); CREATININE 0.36 mg/dL (0.60-1.30); GLOMERULAR FILTR. RATE CALC > 60 mL/min (>60); GLUCOSE,RANDOM 114 mg/dL (70-110); POTASSIUM 4.3 mmol/L (3.5-5.1); SODIUM SERUM 143 mmol/L (136-145); UREA NITROGEN, BLOOD 15 mg/dL (7-18)
[2022-11-21 13:24] LABS: APPEARANCE,URINE CLEAR (CLEAR); BILIRUBIN,URINE NEGATIVE (NEGATIVE); COLOR,URINE COLORLESS (YELLOW); GLUCOSE, URINE (UA) NEGATIVE (NEGATIVE); KETONES,URINE NEGATIVE (NEGATIVE); LEUKOCYTE ESTERASE ,URINE NEGATIVE (NEGATIVE); NITRATE,URINE NEGATIVE (NEGATIVE); OCCULT BLOOD,URINE SMALL (NEGATIVE); PROTEIN,URINE NEGATIVE (NEGATIVE); SPECIFIC GRAVITIY, URINE 1.009 (1.003-1.030); UROBILINOGEN,URINE <=1.0 mg/dL (<=1.0)
[2022-11-21 13:33] LABS: BACTERIA,URINE None Seen /HPF (None Seen); SQUAMOUS EPITHELIAL CELL,UR Few /LPF (None Seen); WBC,URINE None Seen /HPF (0-5)
[2022-11-21] MEDS ORDERED: SODIUM CHLORIDE 0.9% 1,000 ML IV ONE (14:15)
[2022-11-21 14:44] LABS: ANION GAP 12 mmol/L (8-16); CALCIUM, TOTAL 9.6 mg/dL (8.8-10.5); CARBON DIOXIDE 25 mmol/L (22-29); CHLORIDE 107 mmol/L (98-107); CREATININE 0.33 mg/dL (0.60-1.30); GLOMERULAR FILTR. RATE CALC > 60 mL/min (>60); GLUCOSE,RANDOM 97 mg/dL (70-110); POTASSIUM 4.1 mmol/L (3.5-5.1); SODIUM SERUM 144 mmol/L (136-145); UREA NITROGEN, BLOOD 14 mg/dL (7-18)
[2022-11-21 14:50] LABS: TROPONIN I-HIGH SENSITIVITY 7 ng/L (<51)
[2022-11-21 14:51] LABS: ALANINE AMINOTRANSFERASE 39 U/L (12-78); ALKALINE PHOSPHATASE 122 U/L (46-116); ASPARTATE AMINOTRANSFERASE 24 U/L (15-37); BILIRUBIN,TOTAL 0.3 mg/dL (0.1-1.0); LIPASE 30 U/L (16-77); TOTAL PROTEIN, SERUM 7.7 g/dL (6.4-8.2)
[2022-11-21 17:00] VITALS: BP 148/88; PULSE 94; RESP 16
[2022-11-21] MEDS ORDERED: POLY17PO PO (17:09)
== END 2022-11-21 17:17 | disposition home or self-care (01) ==
LOC: EMS 12:08
DX: K59.00 Constipation, unspecified (principal); G89.29 Other chronic pain; M54.9 Dorsalgia, unspecified; E78.00 Pure hypercholesterolemia, unspecified; I10 Essential (primary) hypertension; Z98.890 Other specified postprocedural states; Z88.0 Allergy status to penicillin; Z88.2 Allergy status to sulfonamides; Z91.018 Allergy to other foods; Z88.8 Allergy status to other drugs, medicaments and biological substances
CPT/HCPCS: 74022; 74176; 80048; 80053; 81001; 83690; 84484; 85025; 93005; 99285

== ENCOUNTER → 2023-08-04 | Outpatient (CLI) | payer MEDICARE, BC ==
[~2023-08-04] MED LIST changes: +GADOTERATE MEGLUMINE 10 MMOL/20 ML VIAL IVP ONE; -HYDR-4061 PO; -LEVO-72 PO; +POLY17PO62 PO
== END | disposition home or self-care (01) ==
LOC: RADMN 12:40
PROVIDERS: ATTEND Neurological Surgery
DX: M48.8X4 Other specified spondylopathies, thoracic region (principal); G95.89 Other specified diseases of spinal cord; D33.4 Benign neoplasm of spinal cord; C72.0 Malignant neoplasm of spinal cord
CPT/HCPCS: 72157; A9575

== ENCOUNTER → 2023-11-18 | Outpatient (CLI) | payer MEDICARE, BC ==
[~2023-11-18] MED LIST changes: -GADOTERATE MEGLUMINE 10 MMOL/20 ML VIAL IVP ONE
== END | disposition home or self-care (01) ==
LOC: RADMN 12:39
PROVIDERS: ATTEND Physical Medicine & Rehabilitation
DX: M51.37 Other intervertebral disc degeneration, lumbosacral region (principal); M48.07 Spinal stenosis, lumbosacral region; M47.816 Spondylosis without myelopathy or radiculopathy, lumbar region; N31.9 Neuromuscular dysfunction of bladder, unspecified; C72.0 Malignant neoplasm of spinal cord
CPT/HCPCS: 72148; 76770